=== PATIENT | male | born 1965 | race Caucasian/White ===

== ENCOUNTER 2024-10-27 16:50 | Inpatient (IN) | payer BC, SELFPAY ==
[2024-10-27] VITALS (8 sets, daily range): BP systolic 153–209; BP diastolic 89–126; BMI 37.7; BMI 39.9; BMI 37.6
[2024-10-27 12:13] LABS: Glucose - Point of Care > 600 mg/dl (70-99)
--- NOTE | 2024-10-27 12:42 | ED.GENMED ---
History of Present Illness
General
Chief Complaint: Weakness
Source: patient
Exam Limitations: none
Time Seen by Provider: 10/27/24 12:32
History of Present Illness
History of Present Illness:
59yoM with a history of hypertension and hyperlipidemia presenting for evaluation of generalized weakness. Patient has been severely weak over the past 1 week to the point where he is unable to stand unassisted. He has been having significant
muscle cramps in his lower legs the past few days. He is extremely thirsty and urinating every 30 minutes. He started to experience blurred vision last month and was seen by an eye doctor. The eye doctor asked him if he had a history of diabetes.
Patient has not had outpatient blood work recently. He denies any known history of diabetes.
Past History
Past History
ED Past Medical History: HTN, Hypercholesterolemia and Other (Wellington's disease, Hodgkin's disease in remission since 2002)
ED Past Surgical History: Other (Lymph node removal 1996)
Social History
Tobacco: Former smoker
Alcohol: Occasional
Employment: Employed
Family History
Family History: Other (Reviewed and noncontributory)
Phy Exam
General Physical Exam
General Presentation: mild distress
General Skin: warm and dry
General Mental: alert
General Hydration: dry mucous membranes
ENT Exam
ENT Exam: normocephalic
Cardiovascular Exam
Cardiovascular Exam: regular rate/rhythm
Pulmonary Exam
Pulmonary Exam: lungs clear, no respiratory distress, no rales, no crackles and no rhonchi
Neurological Exam
Neurological Exam: alert
Mehul Coma Scale
Eye Opening: Spontaneous
Verbal Response: Oriented
Motor Response: Obeys Commands
GCS Total Score: 15
Skin Exam
Skin Exam: normal color and warm/dry
Psychiatric Exam
Psychiatric Exam: normal mood/affect
Course
Orders/Labs/Results
Orders:
Orders
10/27/24 12:40
Cardiac Monitoring- Treatment ONCE
0.9% Sodium Chloride 1000 ml [Nss] 1,000 ml IV BOLUS
10/27/24 12:41
Electrocardiogram (*1) Urgent
Reason for Study: Fatigue / Weakness
EKG- Treatment ONCE
10/27/24 13:21
B-Hydroxybutyrate Urgent
Complete Blood Count/With Diff Urgent
Comprehensive Metabolic Panel Urgent
Hemoglobin A1c [Glycohemoglobin (HgbA1c)] Urgent
Magnesium Urgent
Total CK [Creatine Phosphokinase] Urgent
Troponin I Urgent
Urinalysis Reflex To Culture Urgent
Date Specimen was Collected: 10/27/24
Time Specimen was Collected: 13:08
Urine Microscopic Reflex Cult Urgent
Venous Blood Gas Urgent
%Oxygen/Room Air: room air
10/27/24 14:27
0.9% Sodium Chloride 1000 ml [Nss] 1,000 ml IV BOLUS
Insulin Human Regular [Novolin R] 10 units IV NOW STA
10/27/24 14:28
Bedside Glucose- Treatment Q1H
IV Insert/Care/Rem.- Treatment PRN
10/27/24 Dinner
2000 calorie (17 carb) Diabetic
At Your Request: Full Participation
Does patient need a safe tray?: No
10/27/24 15:16
Reg Insulin 100 Units/100 ml [Novolin R Insulin Infusion] 100 units in 100 ml IV NOW
10/27/24 16:00
KCl 20 Meq/0.9%Sodchl 1000 ml [NSS with KCL 20 MEQ] 20 meq in 1,000 ml IV 250 mls/hr
10/27/24 16:04
Insulin Human Regular [Novolin R] 10 units IV NOW STA
10/27/24 16:11
Admit/Transfer Patient As Directed
Co-Sign Provider:
Level of Care: Inpatient admission
Assign to:: Telemetry
Physician / Group: Lisa
Diagnosis: DM with hyperglycemia
Reason for Telemetry: Syncope
Date to Stop Telemetry: 10/29/24
Time to Stop Telemetry: 11:00
Reason for Hospitalization: Above
Expected length of stay greater than two midnights?: Yes
ELOS- Estimated Length of Stay in days: 2
I certify the patient meets the requirements for IP care: Yes
PRN Pain Medication Management As Directed
May give lesser potent ordered pain med per pt: Yes
preference::
Protocol:: Medication orders for pain may be administered in a
manner that supports deferring to patient preference
when the pt is:
- Requesting an ordered lesser potent pain medication.
Least to most potent pain medications are defined
as: acetaminophen < NSAID < tramadol < opioids
(morphine, oxycodone, hydromorphone).
- Requesting a lesser dose of the same medication IF
ORDERED.
- Requesting a less intrusive route of administration
if both routes are prescribed by the provider (PO <
IV).
10/27/24 16:14
Code Status As Directed
Resuscitation Status: Full Code
10/27/24 16:43
Basic Metabolic Panel Q2H
TSH Routine
Comment: ADD ON
10/27/24 18:14
0.9% Sodium Chloride 1000 ml [Nss] 1,000 ml IV 125 mls/hr
Amlodipine [Norvasc] 10 mg PO DAILY
Cyclobenzaprine HCl [Flexeril] 10 mg PO HSPRN PRN
Dextrose 50%-Water [Dextrose 50% Syringe] 12.5 grams IV [id number] PRN
Enoxaparin Sodium [Lovenox] 40 mg SC QPM
Glucagon [GlucaGen] 1 mg IM PRN PRN
Insulin Aspart High Resistance [Novolog Flexpen-High Resistance] See Protocol SC AC
Insulin Aspart Pen [Novolog Flexpen] 6 units SC DAILY@1630
10/27/24 18:14
Add On- LAB Routine
Tests Added?: tsh
Bedside Glucose Monitoring As Directed
Frequency: AC&HS
Additional Instructions:: Change to q6h if pt on TPN, tube feeding or not eating
DX Deep Vein Thrombosis Video Routine
10/27/24 22:00
Insulin Glargine Lantus [Lantus] 20 units Subcutaneous Insulin Syringe [Syringe-Insulin] 0 unit SC HS
10/28/24 06:00
BMP [Basic Metabolic Panel] IN AM
CBC/With Diff [Complete Blood Count/With Diff] IN AM
Lipid Profile [Cardiovascular Evaluation] IN AM
10/28/24 07:30
Insulin Aspart Pen [Novolog Flexpen] 6 units SC DAILY@0730
10/28/24 08:00
Atorvastatin [Lipitor] 10 mg PO DAILY
Cholecalciferol (Vitamin D3) [VITAMIN D3 (cholecalciferol)] 50 mcg PO DAILY
Vitamin B Complex with C [B COMPLEX w/VITAMIN C] 1 caplet PO DAILY
10/28/24 11:30
Insulin Aspart Pen [Novolog Flexpen] 6 units SC DAILY@1130
10/29/24 11:00
DC Protocol for Telemetry ONCE
Abnormal Lab Results
10/27/24 10/27/24 10/27/24
12:11 13:21 13:35
MPV 11.1 H fL
(7.4-10.4)
Absolute Neuts (auto) 7.5 H 10^3/uL
(1.4-6.5)
Absolute Monos (auto) 0.7 H 10^3/uL
(0.1-0.6)
Lymphocytes % 16.9 L %
(20.5-51.1)
VBG pO2 90 H mmHg
(30-50)
Sodium 122 L mmol/L
(135-145)
Chloride 90 L mmol/L
(98-107)
BUN 25 H mg/dl
(9-20)
Glucose 978 H* mg/dl
(70-99)
Hemoglobin A1c 14.8 H %
(4.0-5.6)
Alkaline Phosphatase 283 H U/L
(38-126)
Creatine Kinase 211 H U/L
(55-170)
Total Protein 5.5 L g/dl
(6.3-8.2)
Albumin 3.2 L g/dl
(3.5-5.0)
Urine Glucose 4+ A
(Negative)
Urine Albumin (Reflex) 2+ A
(Neg - Trace)
B-Hydroxybutyrate 0.68 H mmol/L
(0.02-0.27)
POC Glucose > 600 H* mg/dl > 600 H* mg/dl
(70-99) (70-99)
10/27/24 10/27/24
16:03 16:43
MPV
Absolute Neuts (auto)
Absolute Monos (auto)
Lymphocytes %
VBG pO2
Sodium 134 L D mmol/L
(135-145)
Chloride
BUN 22 H mg/dl
(920)
Glucose 502 H* mg/dl
(70-99)
Hemoglobin A1c
Alkaline Phosphatase
Creatine Kinase
Total Protein
Albumin
Urine Glucose
Urine Albumin (Reflex)
B-Hydroxybutyrate
POC Glucose > 600 H* mg/dl
(70-99)
10/27/24 13:21
10/27/24 16:43
Vital Signs
Initial and Last Documented VS:
Initial Vital Signs
Temp Pulse Resp BP Pulse Ox
97.7 F 89 16 209/120 100
10/27/24 12:08 10/27/24 12:08 10/27/24 12:08 10/27/24 12:08 10/27/24 12:08
Last Documented Vital Signs
Temp Pulse Resp BP Pulse Ox
98.7 F 85 17 169/110 98
10/27/24 19:28 10/27/24 19:28 10/27/24 19:28 10/27/24 19:28 10/27/24 19:28
MDM/Problems Addressed
Differential Diagnosis Includes:
59yoM here with weakness, muscle cramps, polyuria, and polydipsia x 1 week. He is hypertensive on arrival. Mucous membranes are dry. Fingerstick glucose >600. No prior hx of diabetes. Differential diagnosis includes but is not limited to: new onset
diabetes, DKA, HHS, dehydration
Initial ED plan: Check CBC, CMP, beta hydroxybutyrate, VBG, UA, and troponin/EKG. IV fluid bolus.
*EKG
Interpreted by ED Provider?: Yes
EKG Intrepretation Date: 10/27/24
Heart Rate: 82
Rate: normal
Rhythm: sinus
[place]: normal axis
Interval: normal interval
QRS Pattern: normal QRS
Ischemia: no ischemia
*Critical Care Note
Total Time (30-74mins, 75-104mins- exclusive of procedures): Not Applicable
Update Note
Update Note:
Glucose 978. Sodium 122 which corrects to 136 for glucose. Bicarb and venous pH are normal. Urine ketones negative. Additional fluid bolus, 10 units IV insulin, and insulin infusion ordered. Patient admitted for further management.
ED Attending Note
-
Portions of this chart may have been created with voice recognition software.� Occasional wrong word or��sound alike� substitutions may have occurred due to the inherent limitations of voice recognition software.
Discharge Plan
Departure
Patient Disposition: Admit
Date of Disposition: 10/27/24
Time of Disposition: 14:42
Presentation/result/management discussed w/ accepting MD/DO: Hospitalist
Discharge Problem:
Diabetes mellitus, new onset
Interventions
Interventions:
*Risk Screen - Suicide Last Done: 10/27/24 12:08
*General Assessment Last Done: 10/27/24 13:40
*Neglect/Abuse Screening Last Done: 10/27/24 12:08
*ED- Fall Risk Assessment Last Done: 10/27/24 13:40
*ED COVID-19 Vaccine History Last Done: 10/27/24 18:23
*Nursing Disposition Last Done: 10/27/24 18:23
ED- Cardiac Assessment Last Done: 10/27/24 13:40
ED- Neurological Assessment Last Done: 10/27/24 13:40
ED- Pulmonary Assessment Last Done: 10/27/24 13:40
Discharge Date and Time
Discharge Date/Time: 10/27/24 18:24
[2024-10-27] MEDS: NSS 1000 IV ×3 (13:21→19:46)
[2024-10-27 13:31] LABS: Venous Blood Gas HCO3 22.7 mmol/L (22-27); Venous Blood Gas O2 Sat % 98.5 %; Venous Blood Gas pCO2 42 mmHg (35-48); Venous Blood Gas pH 7.34 (7.32-7.43); Venous Blood Gas pO2 90 mmHg (30-50)
[2024-10-27 13:36] LABS: Glucose - Point of Care > 600 mg/dl (70-99)
[2024-10-27 13:53] LABS: ALT (SGPT) 32 U/L (0-50); AST (SGOT) 22 U/L (17-59); Albumin 3.2 g/dl (3.5-5.0); Alkaline Phosphatase 283 U/L (38-126); B-Hydroxybutyrate 0.68 mmol/L (0.02-0.27); Blood Urea Nitrogen 25 mg/dl (9-20); Calcium 9.2 mg/dl (8.4-10.2); Carbon Dioxide 24 mmol/L (22-30); Chloride 90 mmol/L (98-107); Creatine Phosphokinase 211 U/L (55-170); Estimated Creatinine Clearance 122 ml/min; Magnesium 1.9 mg/dl (1.6-2.3); Sodium 122 mmol/L (135-145); Total Bilirubin 0.6 mg/dl (0.2-1.3); Total Protein 5.5 g/dl (6.3-8.2); eGFR > 60.00
[2024-10-27 14:04] LABS: Troponin I 0.016 ng/ml
[2024-10-27 14:05] LABS: Urine Albumin 2+ (Neg - Trace); Urine Bilirubin Negative (Negative); Urine Character Clear (Clear); Urine Color Yellow; Urine Glucose 4+ (Negative); Urine Ketone Negative (Negative); Urine Leukocyte Negative (Negative); Urine Nitrite Negative (Negative); Urine Occult Blood Negative (Negative); Urine Specific Gravity 1.015 (<1.030); Urine Urobilinogen Negative (Neg - 1+)
[2024-10-27 14:21] LABS: Urine Red Blood Cell None Seen /HPF (0-2); Urine Squamous Cell 0-2 /LPF (Few); Urine White Cell 0-2 /HPF (0-5)
[2024-10-27 14:25] LABS: Glucose 978 mg/dl (70-99)
[2024-10-27 14:39] LABS: % Basophils 0.3 % (0-2); % Eosinophils 1.2 % (0-6); % Immature Granulocytes 0.4 % (0-0.5); % Lymphocytes 16.9 % (20.5-51.1); % Monocytes 6.8 % (1.7-9.3); % Neutrophils 74.4 % (42.2-75.2); Absolute Eosinophils 0.1 10^3/uL (0-0.7); Absolute Lymphocytes 1.7 10^3/uL (1.2-3.4); Absolute Monocytes 0.7 10^3/uL (0.1-0.6); Absolute Neutrophils 7.5 10^3/uL (1.4-6.5); Hematocrit 40.4 % (39.0-52.0); Hemoglobin 14.5 g/dL (13.0-18.0); Mean Corp Hgb Conc. 35.9 g/dL (33.0-37.0); Mean Corpuscular Hgb 29.6 pg (27.0-31.0); Mean Corpuscular Volume 82.4 fL (80.0-94.0); Mean Platelet Volume 11.1 fL (7.4-10.4); Nucleated Red Blood Cells % 0 % (-); Platelet Count 315 10^3/uL (130-400); Red Cell Dist. Width 12.5 % (11.5-14.5); White Blood Cell Count 10.1 10^3/uL (4.8-10.8)
[2024-10-27 14:47] LABS: Glycohemoglobin (HgbA1c) 14.8 % (4.0-5.6)
[2024-10-27] MEDS: NOVOLIN R 10 UNITS IV ×2 (15:16→16:33)
[2024-10-27] MEDS: NOVOLIN R INSULIN INFUSION 100 IV (15:47)
[2024-10-27 16:04] LABS: Glucose - Point of Care > 600 mg/dl (70-99)
--- NOTE | 2024-10-27 16:26 | HPS.HSE ---
Family Physician
-
Family Physician: Jaime Fofana
Chief Complaint
-
Generalized fatigue, muscle cramps, blurry vision.
History of Present Illness
Patient is a 59 years old male with history of hypertension, dyslipidemia, chronic back pain/spinal stenosis, obesity with BMI of 39 who presents to [facility] with complaints of generalized fatigue, thirst, frequent urinations, muscle
cramps and blurry vision. He denies any fever or chills. He denies any chest pain or respiratory symptoms. He denies any syncope or other complaints suggestive of altered mental status. He reports very recent steroid administration for
exacerbation/lower back injury.
With workup in the emergency room patient was found to have severe hyperglycemia with blood glucose of 978. Hemoglobin A1c 14.8. Patient has no prior diagnosis of diabetes.
Patient had been initiated on insulin drip and IV fluids with improvement of muscle cramps.
Medical History
Past Medical History
Past Medical History: Reports HTN and Hypercholesterolemia
Past Surgical History: Reports None
Social History
Tobacco: Former Smoker
Alcohol: Former
Drug: None
Living: With Family
Employment: Employed
Family History
Family History: Not pertinent
Allergies / Home Medications
Allergies reflects when Allergies were last updated in [facility].
Home Medications with original date entered in [facility]
Allergy/Medication List:
Allergies
Allergy/AdvReac Type Severity Reaction Status Date / Time
No Known Allergies Allergy Verified 10/27/24 12:11
Home Medications
amlodipine 10 mg tablet 10 mg PO DAILY Blood pressure 10/07/22
atorvastatin 10 mg tablet 10 mg PO DAILY High cholesterol 10/07/22
cholecalciferol (vitamin D3) 50 mcg (2,000 unit) tablet 2,000 unit PO DAILY #0 tabs 10/09/22
cyclobenzaprine 10 mg tablet 10 mg PO HSPRN PRN muscle spams 10/27/24
ibuprofen 800 mg tablet 800 mg PO DAILY 10/27/24
ibuprofen 800 mg tablet 800 mg PO DAILYPRN PRN moderate pains 10/27/24
vitamin B complex 1 tab PO DAILY 10/27/24
Review of Systems
-
A 12 point ROS was completed and negative except as noted: Yes
Physical Exam
Vital Signs
Vital Signs
Temp Pulse Resp BP Pulse Ox
97.7 F 84 20 153/103 99
10/27/24 12:08 10/27/24 14:15 10/27/24 14:15 10/27/24 14:00 10/27/24 14:15
Physical Exam
General: Well Developed, Well Nourished and No Apparent Distress
HEENT: NormoCephalic, Moist mucous membranes and Atraumatic
Respiratory: Clear
Cardiac: S1/S2 and Regular Rhythm; No Murmur or Rub
GI: Soft, Non Tender, Non Distended and Normal Bowel Sounds; No Organomegaly
Rectal: Deferred by Provider
Musculoskeletal: No Clubbing, No Cyanosis and No Edema
Skin: No Rash
Neuro: Awake, Alert, Oriented, AO x 3 and Nonfocal/grossly intact
Laboratory Results
-
10/27/24 13:21
Laboratory Results
Total Bilirubin 0.6 mg/dl (0.2-1.3) 10/27/24 13:21
AST 22 U/L (17-59) 10/27/24 13:21
ALT 32 U/L (0-50) 10/27/24 13:21
Alkaline Phosphatase 283 U/L (38-126) H 10/27/24 13:21
Troponin I 0.016 ng/ml 10/27/24 13:21
Impression/Plan
-
IMPRESSION:
Newly diagnosed diabetes with severe hyperglycemia
Pseudohyponatremia, corrected blood glucose 136
Dehydration with hypokalemia contraction alkalosis
Mild beta hydroxybutyrate elevation with no clinical evidence of DKA.
Mild nontraumatic rhabdomyolysis
Other conditions:
Essential hypertension
Dyslipidemia
Chronic back pain/spinal stenosis.
Obesity with BMI of 39.
Former smoker.
History of alcohol use disorder
PLAN:
Newly diagnosed diabetes with severe hyperglycemia
Preserved mental status not meeting criteria for HHNK.
Noted with mild bilateral hydroxybutyrate elevation, and mucous disorder including conduction alkalosis and mild gap acidosis, although not quite meet criteria for DKA.
Hemoglobin A1c 14.5
Continue aggressive hydration with isotonic fluids.
Okay to advance diet.
Initiate basal bolus protocol with serial Accu-Cheks.
Initiate subcutaneous insulin regimen with Lantus 20 units at bedtime and NovoLog 6 AC
Adjust dosing for another 24 to 48 hours.
Diabetic nurse practitioner consultation in AM.
Check TSH and lipid profile.
Mild rhabdomyolysis, nontraumatic.
Follow CPK with hydration.
Essential hypertension.
EKG with normal sinus rhythm.
No prior history of CAD.
Lipid profile pending.
Monitor BP on amlodipine.
Chronic back pain/spinal stenosis
Hold ibuprofen acutely.
History of alcohol use disorder, patient claims to be sober recently.
Full code
DVT prophylaxis Lovenox
[2024-10-27 17:05] LABS: Blood Urea Nitrogen 22 mg/dl (9-20); Calcium 9.4 mg/dl (8.4-10.2); Carbon Dioxide 25 mmol/L (22-30); Chloride 101 mmol/L (98-107); Estimated Creatinine Clearance > 125 ml/min; Glucose 502 mg/dl (70-99); Potassium 3.9 mmol/L (3.5-5.1); Sodium 134 mmol/L (135-145); eGFR > 60.00
[2024-10-27] MEDS: NSS with KCL 20 MEQ 1000 IV (17:07)
[2024-10-27] MEDS: LOVENOX 40 MG SC (18:31)
[2024-10-27] MEDS: NORVASC 10 MG PO (18:32)
[2024-10-27 18:33] LABS: Glucose - Point of Care 377 mg/dl (70-99)
[2024-10-27 19:20] LABS: TSH 2.31 uIU/ml (0.47-4.68)
[2024-10-27] MEDS: NOVOLOG FLEXPEN-HIGH RESISTANCE 12 UNITS SC (19:44)
[2024-10-27] MEDS: NOVOLOG FLEXPEN 6 UNITS SC (19:46)
[2024-10-27] MEDS: FLEXERIL 10 MG PO (20:07)
[2024-10-27 21:21] LABS: Glucose - Point of Care 354 mg/dl (70-99)
[2024-10-27] MEDS: LANTUS 0.2 UNITS SC (21:35)
--- NOTE | 2024-10-27 22:22 | PTCARENOTE ---
Patient received in room from, SBAR received from previous RN. Patient AAOx3, drowsy. Last AccuCheck done upon arrival to floor was 377. Ordered standing insulin and sliding scale given to patient as ordered. Patient hypertensive, Verena Maher,
ADOLFO made aware of BP of 169/110. Repeat BP 167/100. No new orders received at this time. 2200 Accu check 354. 20U of Lantus given. ADOLFO Lema made aware of 354 glucose. No additional orders for NovoLog given. Will recheck Accu check at
0300. Call jauregui within reach, will continue to monitor.
[2024-10-28] MEDS: NSS 1000 IV (02:21)
--- NOTE | 2024-10-28 02:25 | PTCARENOTE ---
Patients' Accu check 360. Patient also c/o feeling 'heaviness' around his B/L ankle. Patient with a new +1 edema around ankles. Per MAR received 3L in ED. Patient currently has IVF at 125ml/hr. No hx of CHF. ADOLFO Lema notified of above.
Order received to give 10U NovoLog now and recheck accu check in 2 hours. Order received to decrease IVF to 100ml/hr. Care ongoing, will continue to monitor.
[2024-10-28 02:28] LABS: Glucose - Point of Care 360 mg/dl (70-99)
[2024-10-28] MEDS: NOVOLOG FLEXPEN 10 UNITS SC ×2 (02:47→17:22)
[2024-10-28 03:18] VITALS: BP 158/88
[2024-10-28 04:46] LABS: Glucose - Point of Care 347 mg/dl (70-99)
--- NOTE | 2024-10-28 05:13 | PTCARENOTE ---
Repeat Accu Check 347 s/p 10 U NovoLog. ADOLFO Lema made aware. No new orders received at this time. Will continue to monitor.
[2024-10-28 07:25] VITALS: BP 148/86
[2024-10-28 07:36] LABS: Glucose - Point of Care 187 mg/dl (70-99)
[2024-10-28] MEDS: B COMPLEX w/VITAMIN C 1 CAPLET PO (08:50)
[2024-10-28] MEDS: LIPITOR 10 MG PO (08:51)
[2024-10-28] MEDS: VITAMIN D3 (cholecalciferol) 50 MCG PO (08:51)
[2024-10-28] MEDS: NORVASC 10 MG PO (08:51)
[2024-10-28] MEDS: NOVOLOG FLEXPEN 6 UNITS SC ×2 (08:52→14:01)
[2024-10-28] MEDS: NOVOLOG FLEXPEN-HIGH RESISTANCE 2 UNITS SC (08:52)
[2024-10-28 09:21] LABS: % Basophils 0.2 % (0-2); % Eosinophils 0.8 % (0-6); % Immature Granulocytes 0.3 % (0-0.5); % Lymphocytes 15.7 % (20.5-51.1); % Monocytes 7.8 % (1.7-9.3); % Neutrophils 75.2 % (42.2-75.2); Absolute Eosinophils 0.1 10^3/uL (0-0.7); Absolute Lymphocytes 2.1 10^3/uL (1.2-3.4); Hematocrit 39.6 % (39.0-52.0); Mean Corp Hgb Conc. 35.4 g/dL (33.0-37.0); Mean Corpuscular Hgb 29.4 pg (27.0-31.0); Mean Platelet Volume 10.7 fL (7.4-10.4); Nucleated Red Blood Cells % 0 % (-); Platelet Count 369 10^3/uL (130-400); Red Blood Cell Count 4.77 10^6/uL (4.70-6.10); Red Cell Dist. Width 12.7 % (11.5-14.5); White Blood Cell Count 13.4 10^3/uL (4.8-10.8)
[2024-10-28 09:52] LABS: Blood Urea Nitrogen 16 mg/dl (9-20); Calcium 9.2 mg/dl (8.4-10.2); Carbon Dioxide 22 mmol/L (22-30); Chloride 106 mmol/L (98-107); Estimated Creatinine Clearance 108 ml/min; Glucose 206 mg/dl (70-99); HDL Cholesterol 36 mg/dl; LDL Cholesterol, Calculated 44 mg/dl; Potassium 4.1 mmol/L (3.5-5.1); Sodium 135 mmol/L (135-145); Total Cholesterol 126 mg/dl (50-199); Triglyceride 231 mg/dl (10-149); Very Low Density Lipoprotein 46 mg/dl (0-30); eGFR > 60.00
[2024-10-28 10:59] VITALS: BP 148/84
[2024-10-28 11:58] LABS: Glucose - Point of Care 362 mg/dl (70-99)
[2024-10-28] MEDS: TYLENOL 650 MG PO ×3 (12:13→22:35)
--- NOTE | 2024-10-28 12:17 | CM ---
Met with patient to obtain information for assessment. Patient stated that he lives in a two story, single home with no steps to enter. He is independent with his ADLs, personal care, dressing and bathing. 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
clean and do laundry. Patient drives and can get to his appointments and do his own shopping. Patient has no DME. He has never been to a SNF.
Patient has a prescription plan and uses, [facility] in [place] for all of his medications.
His PCP is Jaime Fofana.
Plan: Case management will continue to follow and assist with discharge planning. Patient should be able to return home when medically stable.
--- NOTE | 2024-10-28 13:29 | CARDSERVLU ---
Echocardiogram with Lumason completed after protocol screening completed. Allergies verified.
Patent IV site: ___Left AC__
IV site flushed with 0.9% NaCl pre and post administration.
Diluted bolus method utilized to enhance visualization of ventricular scott.
Total volume given: __2.0__ mL
Patient tolerated all procedures well without complications.
[2024-10-28] MEDS: NOVOLOG FLEXPEN-HIGH RESISTANCE 12 UNITS SC (14:00)
--- NOTE | 2024-10-28 14:35 | PTCARENOTE ---
Addendum entered by Katherin Nolen RN 10/28/24 15:01:
Requested RN place RD consult per patient request, requested diabetic testing supplies to be ordered from inpatient MD.
Original Note:
10/28/2024 DIABETES EDUCATION
I met with Mr. Acosta to review diabetes management, is newly diagnosed with diabetes.
I educated on physiology of T1D and T2D, managing with medications, monitoring BG, nutrition, activity, sleep and managing stress.
I educated and reviewed using Contour Next glucometer, member acknowledged understanding with a self demonstration of checking BS.
I educated and demonstrated on insulin injection technique, timing, and storage. Discussed short and long acting insulin; onset/peak/duration, and encouraged Mr. Acosta to administer his own injections with RN supervision while admitted. I
mentioned ot Mr. Acosta that he is currently prescribed short acting insulin, which may change while IP or at discharge.
Discussed normal target glucose ranges, I reinforced signs of hyperglycemia, hypoglycemia; BS parameters and recommended HbA1c goals, written material provided. Encouraged patient to follow up with his PCP for post d/c appointment and to
monitor medication and blood glucose levels. Information provided on the outpatient DSME program. Patient verbalized understanding.
[2024-10-28 14:57] VITALS: BP 145/91
[2024-10-28 15:10] LABS: NT-proBNP 37.9 pg/ml; Troponin I 0.018 ng/ml
--- NOTE | 2024-10-28 15:50 | PN.DE.MGMTRT ---
Insulin Management
- -
10/28/2024 Diabetes Management Consult
Patient admitted 10/27 with weakness, found to have new onset diabetes, glucose 978. PMH HTN, HLD, Hodgkins in remission since 2002. A1C on admission 14.8%
Patient is awake alert and oriented able to discuss new diabetes. Admits to recent thirst, freq. urination in the past week. Discussed the need for insulin, patient understands.
Patient received 6 units lantus @ hs 10/27, 12 MN glucose 360, given 10 units novolog, fasting glucose 187. Received 8 units novolog, pre lunch glucose 362.
Dr. Gonzalez has increased HS lantus to 20 units. Will increase AC novolog to 10 units AC with high corrective insulin.
Diabetes Nurse Educator has instructed patient on insulin administration and glucose monitor.
RX for test strips and lancets in ambulatory orders.
Will follow
Discussed with nurse.
Diabetes History
- -
Type of Diabetes: 2 requiring insulin
Pre-Admission Diabetes Regimen
10/27/24 10/27/24 10/27/24
14:30 16:43 18:30
Creatinine Cancelled 0.8 Cancelled
10/28/24
08:58
Creatinine 0.9
Lab Results
Hemoglobin A1c 14.8 % (4.0-5.6) H 10/27/24 13:21
Insulin Pump Settings
IP Diabetes Regimen
10/27/24 10/27/24 10/27/24
14:30 16:03 16:43
Glucose Cancelled 502 H*
POC Glucose > 600 H*
10/27/24 10/27/24 10/27/24
18:30 18:33 21:19
Glucose Cancelled
POC Glucose 377 H 354 H
10/28/24 10/28/24 10/28/24
02:25 04:44 07:35
Glucose
POC Glucose 360 H 347 H 187 H
10/28/24 10/28/24
08:58 11:57
Glucose 206 H
POC Glucose 362 H
Patient Education
--- NOTE | 2024-10-28 15:54 | W.PN.HOSP.TC ---
Today's Communication/Plan
-
Adjust insulin dose.
Wean off IV fluids.
Insulin teaching
Assessment / Plan
Assessment / Plan
IMPRESSION:
Newly diagnosed diabetes with severe hyperglycemia
Pseudohyponatremia, corrected blood glucose 136
Dehydration with hypokalemia contraction alkalosis
Mild beta hydroxybutyrate elevation with no clinical evidence of DKA.
Mild nontraumatic rhabdomyolysis
Other conditions:
Essential hypertension
Dyslipidemia
Chronic back pain/spinal stenosis.
Obesity with BMI of 39.
Former smoker.
History of alcohol use disorder
PLAN:
Newly diagnosed diabetes with severe hyperglycemia
Preserved mental status not meeting criteria for HHNK.
Noted with mild bilateral hydroxybutyrate elevation, and mucous disorder including conduction alkalosis and mild gap acidosis, although not quite meet criteria for DKA.
Hemoglobin A1c 14.5
Continue aggressive hydration with isotonic fluids.
Okay to advance diet.
Initiate basal bolus protocol with serial Accu-Cheks.
Initiated on insulin Lantus/AC NovoLog. Plan is to adjust the dose of the next 24 to 48 hours. Continue basal bolus protocol with serial Accu-Cheks.
Insulin teaching
TSH within normal limits
Mild rhabdomyolysis, nontraumatic.
Improved with hydration
Essential hypertension.
EKG with normal sinus rhythm.
No prior history of CAD.
Echocardiogram with preserved biventricular function
Continue amlodipine
Continue statin
Chronic back pain/spinal stenosis
Hold ibuprofen acutely.
History of alcohol use disorder, patient claims to be sober recently.
Full code
DVT prophylaxis Lovenox
Anticipated Discharge: 24 - 48 hours
Subjective/Interval History
-
Date of Service: October 28, 2024
Objective Data
-
Labs:
Laboratory Results
10/28/24
08:58
WBC 13.4 H
Hgb 14.0
Hct 39.6
Plt Count 369
Sodium 135
Potassium 4.1
Chloride 106
Carbon Dioxide 22
BUN 16
Creatinine 0.9
Glucose 206 H
Calcium 9.2
Vital Signs:
Vital Signs
Temp Pulse Resp BP Pulse Ox
99.5 F 97 16 145/91 97
10/28/24 14:57 10/28/24 14:57 10/28/24 14:57 10/28/24 14:57 10/28/24 14:57
I&O
10/27/24 10/28/24 10/29/24
06:59 06:59 06:59
Intake Total 480 / 480
Output Total 2150 / 2150
Balance -1670 / -1670
Physical Exam
-
General: Well Developed and No Apparent Distress
HEENT: Normocephalic, Atraumatic and Moist Mucous Membranes
Respiratory: Clear to Auscultation
Cardiac: Regular Rhythm and S1/S2; Negative Murmur, Rub or Gallop
GI: Soft, Nontender, Nondistended and Normal Bowel Sounds; Negative Organomegaly
Rectal: Deferred by Provider
Musculoskeletal: No Clubbing, No Cyanosis and No Edema
Skin: Negative Rash
Neuro: Nonfocal/Grossly Intact
[2024-10-28 16:49] LABS: Glucose - Point of Care 295 mg/dl (70-99)
[2024-10-28] MEDS: LOVENOX 40 MG SC (17:20)
[2024-10-28] MEDS: NOVOLOG FLEXPEN-HIGH RESISTANCE 7 UNITS SC (17:21)
[2024-10-28 19:38] VITALS: BP 164/93
[2024-10-28 21:21] LABS: Glucose - Point of Care 296 mg/dl (70-99)
[2024-10-28] MEDS: LANTUS 0.2 UNITS SC (21:24)
[2024-10-28 23:18] VITALS: BP 158/80
[2024-10-29] VITALS (7 sets, daily range): BP systolic 143–177; BP diastolic 80–95; PULSE 98
[2024-10-29 07:27] LABS: % Basophils 0.4 % (0-2); % Eosinophils 0.6 % (0-6); % Immature Granulocytes 0.5 % (0-0.5); % Lymphocytes 13.5 % (20.5-51.1); % Monocytes 8.9 % (1.7-9.3); % Neutrophils 76.1 % (42.2-75.2); Absolute Basophils 0.1 10^3/uL (0-0.2); Absolute Eosinophils 0.1 10^3/uL (0-0.7); Absolute Immature Granulocytes 0.1 10^3/uL (0-0.05); Absolute Lymphocytes 1.8 10^3/uL (1.2-3.4); Absolute Monocytes 1.2 10^3/uL (0.1-0.6); Absolute Neutrophils 10.2 10^3/uL (1.4-6.5); Hematocrit 41.4 % (39.0-52.0); Hemoglobin 14.3 g/dL (13.0-18.0); Mean Corp Hgb Conc. 34.5 g/dL (33.0-37.0); Mean Corpuscular Hgb 29.2 pg (27.0-31.0); Mean Corpuscular Volume 84.5 fL (80.0-94.0); Mean Platelet Volume 10.8 fL (7.4-10.4); Nucleated Red Blood Cells % 0 % (-); Platelet Count 331 10^3/uL (130-400); White Blood Cell Count 13.4 10^3/uL (4.8-10.8)
[2024-10-29 07:41] LABS: Blood Urea Nitrogen 19 mg/dl (9-20); Calcium 9.5 mg/dl (8.4-10.2); Carbon Dioxide 22 mmol/L (22-30); Chloride 102 mmol/L (98-107); Estimated Creatinine Clearance 108 ml/min; Glucose 257 mg/dl (70-99); Potassium 4.2 mmol/L (3.5-5.1); Sodium 134 mmol/L (135-145); eGFR > 60.00
[2024-10-29 08:02] LABS: Glucose - Point of Care 317 mg/dl (70-99)
[2024-10-29] MEDS: NOVOLOG FLEXPEN-HIGH RESISTANCE 10 UNITS SC ×3 (08:41→17:07)
[2024-10-29] MEDS: NOVOLOG FLEXPEN 10 UNITS SC (08:41)
[2024-10-29] MEDS: NORVASC 10 MG PO (08:42)
[2024-10-29] MEDS: VITAMIN D3 (cholecalciferol) 50 MCG PO (08:42)
[2024-10-29] MEDS: LIPITOR 10 MG PO (08:42)
[2024-10-29] MEDS: B COMPLEX w/VITAMIN C 1 CAPLET PO (08:42)
[2024-10-29 11:38] LABS: Glucose - Point of Care 331 mg/dl (70-99)
--- NOTE | 2024-10-29 11:57 | W.PN.HOSP.TC ---
Today's Communication/Plan
-
Increase Lantus/lispro, PT/OT
Assessment / Plan
Assessment / Plan
IMPRESSION:
Patient is 59 years old with history of hypertension, hyperlipidemia, chronic pain and spinal stenosis, obesity who came to the ER with generalized fatigue, muscle cramp, blurry vision found to have new onset diabetes mellitus not in DKA. Hemoglobin
A1c came back elevated at 14.5. Started on Lantus/lispro.
Adjusting insulin based on current blood sugar read and ordered PT consult for generalized fatigue.
Assessment/plan
Newly diagnosed diabetes with severe hyperglycemia
Preserved mental status not meeting criteria for HHNK.
Noted with mild bilateral hydroxybutyrate elevation, and mucous disorder including conduction alkalosis and mild gap acidosis, although not quite meet criteria for DKA.
Hemoglobin A1c 14.5
Continue aggressive hydration with isotonic fluids.
Okay to advance diet.
Initiate basal bolus protocol with serial Accu-Cheks.
Initiated on insulin Lantus/AC NovoLog. Plan is to adjust the dose of the next 24 to 48 hours. Continue basal bolus protocol with serial Accu-Cheks.
Insulin teaching
TSH within normal limits
10/29
Stable blood sugar read elevated
Lantus increased to 30 units.
NovoLog increased to 15 unit before meals
Mild rhabdomyolysis, nontraumatic.
Improved with hydration
Essential hypertension.
EKG with normal sinus rhythm.
No prior history of CAD.
Echocardiogram with preserved biventricular function
Continue amlodipine
Continue statin
Chronic back pain/spinal stenosis
Hold ibuprofen acutely.
PT/OT
History of alcohol use disorder
patient claims to be sober recently.
CODE STATUS: Full code
DVT prophylaxis: Lovenox
Diet: Diabetic diet
Anticipated Discharge: 24 - 48 hours
Subjective/Interval History
-
Date of Service: October 29, 2024
Patient seen and examined at bedside, denies any chest pain or shortness of breath, no abdominal pain, no nausea, no vomiting, no diarrhea or constipation.
Blood sugar still elevated, We will increase his insulin to 15 units, 3 times daily, Lantus to 20 units. Also, the patient was feeling fatigued today. We need to consult PT.
Objective Data
-
Labs:
Laboratory Results
10/29/24
06:25
WBC 13.4 H
Hgb 14.3
Hct 41.4
Plt Count 331
Sodium 134 L
Potassium 4.2
Chloride 102
Carbon Dioxide 22
BUN 19
Creatinine 0.9
Glucose 257 H
Calcium 9.5
Vital Signs:
Vital Signs
Temp Pulse Resp BP Pulse Ox
98.0 F 100 19 147/95 97
10/29/24 11:00 10/29/24 11:00 10/29/24 11:00 10/29/24 11:00 10/29/24 11:00
I&O
10/28/24 10/29/24 10/30/24
06:59 06:59 06:59
Intake Total 480 / 480 970 / 970
Output Total 2150 / 2150 2450 / 2450
Balance -1670 / -1670 -1480 / -1480
Physical Exam
-
General: Well Developed, Well Nourished, No Apparent Distress, Comfortable and Obese
HEENT: Normocephalic, Atraumatic, Moist Mucous Membranes, No Ptosis, PERRLA and Nose Appears Normal
Respiratory: Clear to Auscultation and Non Labored Respirations
Cardiac: Regular Rhythm and S1/S2
Breast: Deferred by me
GI: Soft, Nontender, Nondistended and Normal Bowel Sounds
Genito-urinary: No Costovertebral Tender
Musculoskeletal: No Clubbing, No Cyanosis and No Edema
Skin: Warm
Neuro: Awake, Alert, Oriented, AO x 3 and No Motor Deficits
Psych: Calm
Data Reviewed
-
Diagnostic Radiology: Image personally visualized and interpreted and Report Reviewed by me
CT Scan: Image personally visualized and interpreted and Report Reviewed by me
Ultrasound: Image personally visualized and interpreted and Report Reviewed by me
MRI: Image personally visualized and interpreted and Report Reviewed by me
Medical Tests (Nuc Med, Echo etc): Image personally visualized and interpreted and Report Reviewed by me
Labs: Labs Reviewed by me
Old Records: Reviewed
[2024-10-29] MEDS: NOVOLOG FLEXPEN 15 UNITS SC ×2 (13:17→17:07)
[2024-10-29] MEDS: NEURONTIN 300 MG PO ×2 (15:11→21:22)
[2024-10-29 16:47] LABS: Glucose - Point of Care 343 mg/dl (70-99)
[2024-10-29] MEDS: LOVENOX 40 MG SC (17:07)
[2024-10-29] MEDS: FLEXERIL 10 MG PO (19:40)
[2024-10-29 21:17] LABS: Glucose - Point of Care 304 mg/dl (70-99)
[2024-10-29] MEDS: LANTUS 0.3 UNITS SC (21:22)
[2024-10-29 23:46] LABS: Glucose - Point of Care 262 mg/dl (70-99)
[2024-10-30 07:00] VITALS: BP 172/97
[2024-10-30 07:21] LABS: Hematocrit 38.5 % (39.0-52.0); Hemoglobin 13.3 g/dL (13.0-18.0); Mean Corp Hgb Conc. 34.5 g/dL (33.0-37.0); Mean Corpuscular Hgb 29.2 pg (27.0-31.0); Mean Corpuscular Volume 84.6 fL (80.0-94.0); Mean Platelet Volume 10.8 fL (7.4-10.4); Platelet Count 320 10^3/uL (130-400); Red Blood Cell Count 4.55 10^6/uL (4.70-6.10); Red Cell Dist. Width 12.9 % (11.5-14.5); White Blood Cell Count 16.1 10^3/uL (4.8-10.8)
[2024-10-30 07:53] LABS: Glucose - Point of Care > 600 mg/dl (70-99)
[2024-10-30 07:56] LABS: Blood Urea Nitrogen 21 mg/dl (9-20); Calcium 9.2 mg/dl (8.4-10.2); Carbon Dioxide 19 mmol/L (22-30); Chloride 101 mmol/L (98-107); Estimated Creatinine Clearance 97 ml/min; Glucose 275 mg/dl (70-99); Potassium 4.3 mmol/L (3.5-5.1); Sodium 132 mmol/L (135-145); eGFR > 60.00
--- NOTE | 2024-10-30 08:23 | PTCARENOTE ---
RR Hi on accucheckprior to breakfast. Glucose from BMP drawn approx 1 hr ago noted to be 275. Stat glucose ordered per protocol to confirm blood sugar prior to dosing insulin for breakfast. Venous glucose result 279 - insulin dosed according to
venous blood glucose.
[2024-10-30 08:35] LABS: Glucose 279 mg/dl (70-99)
[2024-10-30] MEDS: NOVOLOG FLEXPEN 15 UNITS SC ×3 (08:38→17:02)
[2024-10-30] MEDS: NOVOLOG FLEXPEN-HIGH RESISTANCE 7 UNITS SC (08:38)
[2024-10-30] MEDS: VITAMIN D3 (cholecalciferol) 50 MCG PO (08:39)
[2024-10-30] MEDS: NORVASC 10 MG PO (08:39)
[2024-10-30] MEDS: NEURONTIN 300 MG PO ×3 (08:39→21:49)
[2024-10-30] MEDS: LIPITOR 10 MG PO (08:39)
[2024-10-30] MEDS: B COMPLEX w/VITAMIN C 1 CAPLET PO (08:39)
[2024-10-30 11:27] LABS: Glucose - Point of Care 533 mg/dl (70-99)
[2024-10-30 11:37] LABS: Glucose - Point of Care 272 mg/dl (70-99)
--- NOTE | 2024-10-30 12:06 | W.PN.HOSP.TC ---
Today's Communication/Plan
-
Blood cultures
Assessment / Plan
Assessment / Plan
IMPRESSION:
Patient is 59 years old with history of hypertension, hyperlipidemia, chronic pain and spinal stenosis, obesity who came to the ER with generalized fatigue, muscle cramp, blurry vision found to have new onset diabetes mellitus not in DKA. Hemoglobin
A1c came back elevated at 14.5. Started on Lantus/lispro.
Adjusting insulin based on current blood sugar read and ordered PT consult for generalized fatigue.
Assessment/plan
Newly diagnosed diabetes with severe hyperglycemia
Preserved mental status not meeting criteria for HHNK.
Noted with mild bilateral hydroxybutyrate elevation, and mucous disorder including conduction alkalosis and mild gap acidosis, although not quite meet criteria for DKA.
Hemoglobin A1c 14.5
Continue aggressive hydration with isotonic fluids.
Okay to advance diet.
Initiate basal bolus protocol with serial Accu-Cheks.
Initiated on insulin Lantus/AC NovoLog. Plan is to adjust the dose of the next 24 to 48 hours. Continue basal bolus protocol with serial Accu-Cheks.
Insulin teaching
TSH within normal limits
10/29
Stable blood sugar read elevated
Lantus increased to 30 units.
NovoLog increased to 15 unit before meals
10/30
Still with elevated blood sugar, will consider to increase Lantus and NovoLog further
Leukocytosis
No sign of localized infection.
Chest x-ray done in admission shows no acute finding.
UA on admission shows no infection.
Will obtain blood culture
Mild rhabdomyolysis, nontraumatic.
Improved with hydration
Essential hypertension.
EKG with normal sinus rhythm.
No prior history of CAD.
Echocardiogram with preserved biventricular function
Continue amlodipine
Continue statin
Chronic back pain/spinal stenosis
Hold ibuprofen acutely.
PT/OT
History of alcohol use disorder
patient claims to be sober recently.
CODE STATUS: Full code
DVT prophylaxis: Lovenox
Diet: Diabetic diet
Total time spent on today's encounter was 55 minutes which included time spent in counseling the patient/family regarding diagnosis and treatment plan as listed above, goals of care, and symptom management. Case was discussed with nursing staff,
specialists, and care coordinators/case management. All labs and imaging personally reviewed by me. Remainder the time spent in detailed review of previous records, lab data, imaging, and other medical provider documentation.
Anticipated Discharge: 24 - 48 hours
Subjective/Interval History
-
Date of Service: October 30, 2024
Overnight patient had issues with elevated blood sugar, and received extra insulin
Blood sugar improved in a.m.
May need to increase Lantus and Premeal coverage
Started on gabapentin yesterday which helped with muscle pain.
Worsening leukocytosis today will obtain blood cultures.
Seen by physical therapy yesterday who recommended rehab.
Objective Data
-
Labs:
Laboratory Results
10/30/24 10/30/24 10/30/24
06:33 08:12 11:54
WBC 16.1 H
Hgb 13.3
Hct 38.5 L
Plt Count 320
Sodium 132 L
Potassium 4.3
Chloride 101
Carbon Dioxide 19 L
BUN 21 H
Creatinine 1.0
Glucose 275 H 279 H Pending
Calcium 9.2
Vital Signs:
Vital Signs
Temp Pulse Resp BP Pulse Ox
98.0 F 98 17 172/97 95
10/30/24 07:00 10/30/24 07:00 10/30/24 07:00 10/30/24 07:00 10/30/24 07:00
I&O
10/29/24 10/30/24 10/31/24
06:59 06:59 06:59
Intake Total 970 / 970 1680 / 1680 480 / 480
Output Total 2450 / 2450 900 / 900 1300 / 1300
Balance -1480 / -1480 780 / 780 -820 / -820
Physical Exam
-
General: Well Developed, Well Nourished, No Apparent Distress, Comfortable and Obese
HEENT: Normocephalic, Atraumatic, Moist Mucous Membranes, No Ptosis, PERRLA and Nose Appears Normal
Respiratory: Clear to Auscultation and Non Labored Respirations
Cardiac: Regular Rhythm and S1/S2
Breast: Deferred by me
GI: Soft, Nontender, Nondistended and Normal Bowel Sounds
Genito-urinary: No Costovertebral Tender
Musculoskeletal: No Clubbing, No Cyanosis and No Edema
Skin: Warm
Neuro: Awake, Alert, Oriented, AO x 3 and No Motor Deficits
Psych: Calm
[2024-10-30 12:18] LABS: Glucose 330 mg/dl (70-99)
--- NOTE | 2024-10-30 12:25 | PTCARENOTE ---
RR Hi again on accucheck prior to lunch. Accucheck recalibrated and then pt rechecked - result 272. Stat venous blood glucose ordered again to confirm accuracy - venous glucose result 330. Dosing from venous glucose result again for lunch time
insulin dose.
[2024-10-30] MEDS: NOVOLOG FLEXPEN-HIGH RESISTANCE 10 UNITS SC ×2 (13:34→17:03)
[2024-10-30 14:59] VITALS: BP 163/92
[2024-10-30 15:32] VITALS: BP 139/91; BP 162/85
[2024-10-30 15:34] VITALS: BP 139/91; BP 162/85; PULSE 100; O2SAT 95
[2024-10-30 16:40] LABS: Glucose - Point of Care 313 mg/dl (70-99)
[2024-10-30] MEDS: LOVENOX 40 MG SC (17:03)
[2024-10-30] MEDS: TYLENOL 650 MG PO (17:37)
[2024-10-30 19:15] LABS: Glucose - Point of Care 314 mg/dl (70-99)
[2024-10-30] MEDS: FLEXERIL 10 MG PO (19:34)
[2024-10-30 21:24] LABS: Glucose - Point of Care > 600 mg/dl (70-99)
[2024-10-30 21:24] LABS: Glucose - Point of Care > 600 mg/dl (70-99)
[2024-10-30 21:25] LABS: Glucose - Point of Care 271 mg/dl (70-99)
[2024-10-30] MEDS: LANTUS 0.3 UNITS SC (21:49)
[2024-10-30 23:04] VITALS: BP 151/96
[2024-10-31 07:10] LABS: Hematocrit 38.3 % (39.0-52.0); Hemoglobin 13.3 g/dL (13.0-18.0); Mean Corp Hgb Conc. 34.7 g/dL (33.0-37.0); Mean Corpuscular Hgb 29.6 pg (27.0-31.0); Mean Corpuscular Volume 85.3 fL (80.0-94.0); Mean Platelet Volume 10.4 fL (7.4-10.4); Platelet Count 329 10^3/uL (130-400); Red Blood Cell Count 4.49 10^6/uL (4.70-6.10); White Blood Cell Count 12.7 10^3/uL (4.8-10.8)
[2024-10-31 07:33] VITALS: BP 153/89
[2024-10-31 07:34] LABS: Blood Urea Nitrogen 21 mg/dl (9-20); Calcium 9.3 mg/dl (8.4-10.2); Carbon Dioxide 22 mmol/L (22-30); Chloride 100 mmol/L (98-107); Estimated Creatinine Clearance 108 ml/min; Glucose 225 mg/dl (70-99); Potassium 4.9 mmol/L (3.5-5.1); Sodium 132 mmol/L (135-145); eGFR > 60.00
[2024-10-31 07:45] LABS: Glucose - Point of Care 229 mg/dl (70-99)
[2024-10-31] MEDS: LIPITOR 10 MG PO (08:00)
[2024-10-31] MEDS: NOVOLOG FLEXPEN 15 UNITS SC (08:19)
[2024-10-31] MEDS: NOVOLOG FLEXPEN-HIGH RESISTANCE 4 UNITS SC (08:20)
[2024-10-31] MEDS: B COMPLEX w/VITAMIN C 1 CAPLET PO (08:21)
[2024-10-31] MEDS: NORVASC 10 MG PO (08:21)
[2024-10-31] MEDS: VITAMIN D3 (cholecalciferol) 50 MCG PO (08:21)
[2024-10-31] MEDS: NEURONTIN 300 MG PO ×3 (08:22→21:32)
[2024-10-31] MEDS: TYLENOL 650 MG PO ×2 (08:23→23:44)
[2024-10-31 09:22] LABS: Glucose - Point of Care 290 mg/dl (70-99)
[2024-10-31 09:26] VITALS: BP 123/79
[2024-10-31 10:26] LABS: Erythrocyte Sed Rate 74 mm/hour (0-20)
--- NOTE | 2024-10-31 10:39 | PN.DE.MGMTRT ---
Insulin Management
- -
10/31/2024: Diabetes Management Follow up
Patient admitted 10/27 with weakness, found to have new onset diabetes, glucose 978.
PMH: HTN, HLD, Hodgkins in remission since 2002. A1C on admission 14.8%, Cr 0.9, eGFR >60. Pt admits to recent thirst, freq. urination in the past week. Discussed the need for insulin, patient understands.
Patient is awake alert and oriented, sitting up in bed, able to discuss new diabetes.
Noted for persistent Hyperglycemia. HS glucose elevated up to >600 POC, No venous draw obtained, pt received 30 units Lantus, FBG 225(V) this AM.
Will increase Lantus to 40 units @ HS. 10/30 Premeal range 272 to 533, requiring 4-10 units of corrective insulin with meals
Will increase AC NovoLog to 20 units with high corrective insulin.
Will cont to follow and make further insulin dose adjustments if necessary. Discussed with nurse.
Diabetes Nurse Educator provided instructions on insulin administration and glucose monitor.
RX for test strips and lancets in ambulatory orders.
Diabetes History
- -
Type of Diabetes: 2 requiring insulin
Pre-Admission Diabetes Regimen
10/31/24
06:39
Creatinine 0.9
Lab Results
Hemoglobin A1c 14.8 % (4.0-5.6) H 10/27/24 13:21
Insulin Pump Settings
IP Diabetes Regimen
10/30/24 10/30/24 10/30/24
11:26 11:36 11:54
Glucose 330 H
POC Glucose 533 H* 272 H
10/30/24 10/30/24 10/30/24
16:36 19:13 21:19
Glucose
POC Glucose 313 H 314 H > 600 H*
10/30/24 10/30/24 10/31/24
21:21 21:22 06:39
Glucose 225 H
POC Glucose > 600 H* 271 H
10/31/24 10/31/24
07:44 09:21
Glucose
POC Glucose 229 H 290 H
Meal type: Dinner
Meal type: Lunch
Meal type: Breakfast
Amount consumed: 100%
Amount consumed: 100%
Amount consumed: 100%
Patient Education
[2024-10-31 10:51] VITALS: BP 125/89
[2024-10-31 11:19] LABS: C-Reactive Protein > 270.00 mg/L (0.0-10.00)
[2024-10-31 11:42] LABS: Glucose - Point of Care 273 mg/dl (70-99)
[2024-10-31 12:22] LABS: Creatine Phosphokinase 56 U/L (55-170)
--- NOTE | 2024-10-31 12:38 | CM ---
patient seen at bedside
PT rec SNF
Options reviewed-Referrals entered in [facility]port
Will need to obtain ins auth
PLAN: SNF, pending bed availability, will need auth
[2024-10-31] MEDS: NOVOLOG FLEXPEN-HIGH RESISTANCE 7 UNITS SC (13:34)
[2024-10-31] MEDS: NOVOLOG FLEXPEN 20 UNITS SC ×2 (13:36→17:56)
--- NOTE | 2024-10-31 13:40 | PTCARENOTE ---
This AM before breakfast, pt noted to be diaphoretic and appearing pale, struggling to keep eyes open. Visually, he did not look well compared to previous days per staff. An EKG, AccuCheck and vitals obtained. All unremarkable. MD notified and
entered new orders for lab work including repeat blood cultures and additional lab add ons. Hours later, patient is not diaphoretic, increased alertness and color had returned. Vitals remain stable, pt also remains afebrile. Plan of care ongoing.
[2024-10-31 14:41] VITALS: BP 164/81
--- NOTE | 2024-10-31 15:06 | W.PN.HOSP.TC ---
Today's Communication/Plan
-
Follow blood cultures
Monitor temperature curve.
Monitor closely off antibiotics.
Adjust insulin dose
Assessment / Plan
Assessment / Plan
IMPRESSION:
Patient is 59 years old with history of hypertension, hyperlipidemia, chronic pain and spinal stenosis, obesity who came to the ER with generalized fatigue, muscle cramp, blurry vision found to have new onset diabetes mellitus not in DKA. Hemoglobin
A1c came back elevated at 14.5. Started on Lantus/lispro.
Adjusting insulin based on current blood sugar read and ordered PT consult for generalized fatigue.
Assessment/plan
Newly diagnosed diabetes with severe hyperglycemia
Preserved mental status not meeting criteria for HHNK.
Noted with mild bilateral hydroxybutyrate elevation, and mucous disorder including conduction alkalosis and mild gap acidosis, although not quite meet criteria for DKA.
Hemoglobin A1c 14.5
Continue aggressive hydration with isotonic fluids.
Okay to advance diet.
Initiate basal bolus protocol with serial Accu-Cheks.
Initiated on insulin Lantus/AC NovoLog.
Insulin teaching
TSH within normal limits
Remains hyperglycemic
Insulin dose adjusted increasing Lantus 40 at bedtime/NovoLog 20 AC. Continue basal bolus protocol.
Fever leukocytosis
No sign of localized infection.
Chest x-ray done in admission shows no acute finding.
UA on admission shows no infection.
Elevated inflammatory markers: CRP/sed rate.
Blood cultures pending.
Complains of right shoulder pain with x-ray showed no acute abnormalities.
Has a chronic low back pain which patient reports no exacerbation at this point
Follow final blood cultures
If persistent fever, leukocytosis, consider additional imaging including MRI of the shoulder and lower back, CT of the chest abdomen and pelvis.
Mild rhabdomyolysis, nontraumatic.
Improved with hydration
Essential hypertension.
EKG with normal sinus rhythm.
No prior history of CAD.
Echocardiogram with preserved biventricular function
Continue amlodipine
Continue statin
Chronic back pain/spinal stenosis
Hold ibuprofen acutely.
PT/OT
History of alcohol use disorder
patient claims to be sober recently.
CODE STATUS: Full code
DVT prophylaxis: Lovenox
Diet: Diabetic diet
Anticipated Discharge: 24 - 48 hours
Subjective/Interval History
-
Date of Service: October 31, 2024
Objective Data
-
Labs:
Laboratory Results
10/31/24
06:39
WBC 12.7 H
Hgb 13.3
Hct 38.3 L
Plt Count 329
Sodium 132 L
Potassium 4.9
Chloride 100
Carbon Dioxide 22
BUN 21 H
Creatinine 0.9
Glucose 225 H
Calcium 9.3
Vital Signs:
Vital Signs
Temp Pulse Resp BP Pulse Ox
99.3 F 102 22 164/81 98
10/31/24 14:41 10/31/24 14:41 10/31/24 14:41 10/31/24 14:41 10/31/24 14:41
I&O
10/30/24 10/31/24 11/01/24
06:59 06:59 06:59
Intake Total 1680 / 1680 2640 / 2640
Output Total 900 / 900 4200 / 4200
Balance 780 / 780 -1560 / -1560
Physical Exam
-
General: Well Developed, Well Nourished, No Apparent Distress, Comfortable and Obese
HEENT: Normocephalic, Atraumatic, Moist Mucous Membranes, No Ptosis, PERRLA and Nose Appears Normal
Respiratory: Clear to Auscultation and Non Labored Respirations
Cardiac: Regular Rhythm and S1/S2
Breast: Deferred by me
GI: Soft, Nontender, Nondistended and Normal Bowel Sounds
Genito-urinary: No Costovertebral Tender
Musculoskeletal: No Clubbing, No Cyanosis and No Edema
Skin: Warm
Neuro: Awake, Alert, Oriented, AO x 3 and No Motor Deficits
Psych: Calm
--- NOTE | 2024-10-31 15:50 | PTCARENOTE ---
10/31/2024 DIABETES EDUCATION
I visited Mr. Acosta, he has been administering his insulin injections for the past few days with no difficulties. Also states he has been assisting with glucose checks with no difficulty. Anticipates going to rehab after discharge, was receptive
to receiving names of local Endocrinologists. Will follow up on 11/01/2024.
[2024-10-31 17:00] LABS: Glucose - Point of Care 319 mg/dl (70-99)
[2024-10-31] MEDS: LOVENOX 40 MG SC (17:02)
[2024-10-31] MEDS: NOVOLOG FLEXPEN-HIGH RESISTANCE 10 UNITS SC (17:55)
[2024-10-31 21:32] LABS: Glucose - Point of Care 314 mg/dl (70-99)
[2024-10-31] MEDS: LANTUS 0.4 UNITS SC (21:32)
[2024-10-31 23:18] VITALS: BP 149/84
[2024-11-01 06:39] LABS: % Basophils 0.2 % (0-2); % Eosinophils 2.6 % (0-6); % Immature Granulocytes 0.7 % (0-0.5); % Monocytes 11.5 % (1.7-9.3); Absolute Eosinophils 0.3 10^3/uL (0-0.7); Absolute Immature Granulocytes 0.1 10^3/uL (0-0.05); Absolute Lymphocytes 1.5 10^3/uL (1.2-3.4); Absolute Monocytes 1.2 10^3/uL (0.1-0.6); Absolute Neutrophils 7.1 10^3/uL (1.4-6.5); Hematocrit 38.1 % (39.0-52.0); Mean Corp Hgb Conc. 34.1 g/dL (33.0-37.0); Mean Corpuscular Hgb 29.1 pg (27.0-31.0); Mean Corpuscular Volume 85.4 fL (80.0-94.0); Mean Platelet Volume 10.3 fL (7.4-10.4); Nucleated Red Blood Cells % 0 % (-); Platelet Count 362 10^3/uL (130-400); Red Blood Cell Count 4.46 10^6/uL (4.70-6.10); Red Cell Dist. Width 12.9 % (11.5-14.5); White Blood Cell Count 10.2 10^3/uL (4.8-10.8)
[2024-11-01 06:57] LABS: Blood Urea Nitrogen 22 mg/dl (9-20); Calcium 9.4 mg/dl (8.4-10.2); Carbon Dioxide 25 mmol/L (22-30); Chloride 102 mmol/L (98-107); Estimated Creatinine Clearance 108 ml/min; Glucose 160 mg/dl (70-99); Potassium 4.7 mmol/L (3.5-5.1); Sodium 135 mmol/L (135-145); eGFR > 60.00
[2024-11-01 07:14] VITALS: BP 133/87
--- NOTE | 2024-11-01 07:38 | PN.DE.MGMTRT ---
Insulin Management
- -
11/01/2024: Diabetes Management Follow up
Patient admitted 10/27 with weakness, found to have new onset diabetes, glucose 978.
PMH: HTN, HLD, Hodgkins in remission since 2002. A1C on admission 14.8%, Cr 0.9, eGFR >60. Pt admits to recent thirst, freq. urination in the past week. Discussed the need for insulin, patient understands.
Patient is awake alert and oriented, sitting up in bed, able to discuss new diabetes.
10/31 Pre meal glucose 290 to 319 requiring 5 to 7 units of corrective insulin. AC novolog was increased to 20 units, HS lantus increased to 40 units.
11/01 Fasting glucose 160. Will increase AC novolog to 25 units and reduce high corrective to moderate. Will continue lantus 40 units @ hs.
Will cont to follow and make further insulin dose adjustments if necessary. Discussed with nurse.
Diabetes Nurse Educator provided instructions on insulin administration and glucose monitor.
RX for test strips and lancets in ambulatory orders.
Diabetes History
- -
Type of Diabetes: 2 requiring insulin
Pre-Admission Diabetes Regimen
11/01/24
06:13
Creatinine 0.9
Lab Results
Hemoglobin A1c 14.8 % (4.0-5.6) H 10/27/24 13:21
Insulin Pump Settings
IP Diabetes Regimen
10/31/24 10/31/24 10/31/24
07:44 09:21 11:41
Glucose
POC Glucose 229 H 290 H 273 H
10/31/24 10/31/24 11/01/24
16:59 21:31 06:13
Glucose 160 H
POC Glucose 319 H 314 H
Meal type: Dinner
Meal type: Lunch
Meal type: Breakfast
Amount consumed: 95%
Amount consumed: 85%
Amount consumed: 80%
Patient Education
[2024-11-01 07:53] LABS: Glucose - Point of Care 152 mg/dl (70-99)
--- NOTE | 2024-11-01 07:56 | VATNOTE ---
R arm swelling noted on assessment of peripheral IVs. Pt had 18g in R forearm that this VAT RN decided to D/C. Hospitalist notified that U/S recommended. Will continue to monitor.
[2024-11-01] MEDS: NEURONTIN 300 MG PO ×3 (08:00→21:30)
[2024-11-01] MEDS: LIPITOR 10 MG PO (08:00)
[2024-11-01] MEDS: NOVOLOG FLEXPEN 25 UNITS SC ×3 (08:04→16:42)
[2024-11-01] MEDS: NOVOLOG FLEXPEN-MODERATE RESISTANCE 1 UNITS SC (08:05)
[2024-11-01] MEDS: VITAMIN D3 (cholecalciferol) 50 MCG PO (08:06)
[2024-11-01] MEDS: NORVASC 10 MG PO (08:06)
[2024-11-01] MEDS: B COMPLEX w/VITAMIN C 1 CAPLET PO (08:06)
[2024-11-01] MEDS: NOVOLOG FLEXPEN SC (08:10)
[2024-11-01] MEDS: NOVOLOG FLEXPEN-HIGH RESISTANCE SC (08:11)
[2024-11-01 11:35] LABS: Glucose - Point of Care 223 mg/dl (70-99)
[2024-11-01] MEDS: NOVOLOG FLEXPEN-MODERATE RESISTANCE 3 UNITS SC ×2 (11:54→16:43)
[2024-11-01 12:21] VITALS: BP 131/86; PULSE 95; O2SAT 96
--- NOTE | 2024-11-01 13:43 | CM ---
PT rec SNF
Referrals in careport
Patient prefers [facility]
Updated [facility] liaison
will need ins authorization
PLAN: SNF, pending bed availability when medically stable
--- NOTE | 2024-11-01 15:09 | W.PN.HOSP.TC ---
Today's Communication/Plan
-
Adjust insulin dosing.
Bilateral lower extremity Doppler as a workup for fever of unknown origin.
Physical therapy assessment
Assessment / Plan
Assessment / Plan
IMPRESSION:
Patient is 59 years old with history of hypertension, hyperlipidemia, chronic pain and spinal stenosis, obesity who came to the ER with generalized fatigue, muscle cramp, blurry vision found to have new onset diabetes mellitus not in DKA. Hemoglobin
A1c came back elevated at 14.5. Started on Lantus/lispro.
Adjusting insulin based on current blood sugar read and ordered PT consult for generalized fatigue.
Assessment/plan
Newly diagnosed diabetes with severe hyperglycemia
Preserved mental status not meeting criteria for HHNK.
Noted with mild bilateral hydroxybutyrate elevation, and mucous disorder including conduction alkalosis and mild gap acidosis, although not quite meet criteria for DKA.
Hemoglobin A1c 14.5
Continue aggressive hydration with isotonic fluids.
Okay to advance diet.
Initiate basal bolus protocol with serial Accu-Cheks.
Initiated on insulin Lantus/AC NovoLog.
Insulin teaching
TSH within normal limits
Remains hyperglycemic
Insulin dose adjusted increasing Lantus 40 at bedtime/NovoLog 25 AC. Continue basal bolus protocol.
Diabetic neuropathy
Diffuse body ache
Bilateral lower extremity
Initiated on Neurontin
Continue Flexeril
Fever leukocytosis
No sign of localized infection.
Chest x-ray done in admission shows no acute finding.
UA on admission shows no infection.
Elevated inflammatory markers: CRP/sed rate.
Blood cultures negative to date
Complains of right shoulder pain with x-ray showed no acute abnormalities. Pain improving with addition of Neurontin. Given trending down fever, WBC, no indication for additional imaging.
Has a chronic low back pain which patient reports no exacerbation at this point
Right upper extremity edema. Check Doppler ultrasound
In addition given fever with no apparent source, we check bilateral lower extremity Doppler.
Mild rhabdomyolysis, nontraumatic.
Improved with hydration
Essential hypertension.
EKG with normal sinus rhythm.
No prior history of CAD.
Echocardiogram with preserved biventricular function
Continue amlodipine
Albuminuria. May benefit from addition of SHAE or ARB's. Monitor BP trend.
Continue statin
Chronic back pain/spinal stenosis
Hold ibuprofen acutely.
PT/OT
History of alcohol use disorder
patient claims to be sober recently.
CODE STATUS: Full code
DVT prophylaxis: Lovenox
Diet: Diabetic diet
Anticipated Discharge: 24 - 48 hours
Subjective/Interval History
-
Date of Service: November 01, 2024
Objective Data
-
Labs:
Laboratory Results
11/01/24
06:13
WBC 10.2
Hgb 13.0
Hct 38.1 L
Plt Count 362
Sodium 135
Potassium 4.7
Chloride 102
Carbon Dioxide 25
BUN 22 H
Creatinine 0.9
Glucose 160 H
Calcium 9.4
Vital Signs:
Vital Signs
Temp Pulse Resp BP Pulse Ox
99.5 F 92 18 135/87 96
11/01/24 07:14 11/01/24 08:06 11/01/24 07:14 11/01/24 08:06 11/01/24 10:38
I&O
10/31/24 11/01/24 11/02/24
06:59 06:59 06:59
Intake Total 2640 / 2640 1130 / 1130
Output Total 4200 / 4200 2475 / 2475
Balance -1560 / -1560 -1345 / -1345
Physical Exam
-
General: Well Developed, Well Nourished, No Apparent Distress, Comfortable and Obese
HEENT: Normocephalic, Atraumatic, Moist Mucous Membranes, No Ptosis, PERRLA and Nose Appears Normal
Respiratory: Clear to Auscultation and Non Labored Respirations
Cardiac: Regular Rhythm and S1/S2
Breast: Deferred by me
GI: Soft, Nontender, Nondistended and Normal Bowel Sounds
Genito-urinary: No Costovertebral Tender
Musculoskeletal: No Clubbing, No Cyanosis and No Edema
Skin: Warm
Neuro: Awake, Alert, Oriented, AO x 3 and No Motor Deficits
Psych: Calm
[2024-11-01] MEDS: FLEXERIL 10 MG PO (15:15)
[2024-11-01 16:00] VITALS: BP 155/87
--- NOTE | 2024-11-01 16:01 | PTCARENOTE ---
11/01/2024 DIABETES FOLLOW UP
Spoke to Otilio, he feels comfortable with insulin injection and SMBG with glucometer. Unsure of d/c plan. I provided list of endocrinologists as he requested.
[2024-11-01 16:39] LABS: Glucose - Point of Care 222 mg/dl (70-99)
[2024-11-01] MEDS: TYLENOL 650 MG PO ×2 (16:42→23:18)
[2024-11-01] MEDS: LOVENOX 40 MG SC (17:18)
[2024-11-01 21:30] LABS: Glucose - Point of Care 183 mg/dl (70-99)
[2024-11-01] MEDS: LANTUS 0.4 UNITS SC (21:30)
[2024-11-01 23:15] VITALS: BP 145/82
[2024-11-02 07:27] LABS: Glucose - Point of Care 181 mg/dl (70-99)
[2024-11-02 07:49] VITALS: BP 139/87
[2024-11-02] MEDS: B COMPLEX w/VITAMIN C 1 CAPLET PO (08:04)
[2024-11-02] MEDS: LIPITOR 10 MG PO (08:04)
[2024-11-02] MEDS: NORVASC 10 MG PO (08:04)
[2024-11-02] MEDS: NEURONTIN 300 MG PO ×3 (08:04→21:35)
[2024-11-02] MEDS: VITAMIN D3 (cholecalciferol) 50 MCG PO (08:04)
[2024-11-02] MEDS: NOVOLOG FLEXPEN 25 UNITS SC (08:05)
[2024-11-02] MEDS: NOVOLOG FLEXPEN-MODERATE RESISTANCE 1 UNITS SC ×2 (08:05→12:48)
[2024-11-02 08:40] LABS: % Basophils 0.4 % (0-2); % Immature Granulocytes 0.7 % (0-0.5); % Lymphocytes 16.1 % (20.5-51.1); % Monocytes 11.3 % (1.7-9.3); % Neutrophils 68.5 % (42.2-75.2); Absolute Eosinophils 0.3 10^3/uL (0-0.7); Absolute Immature Granulocytes 0.1 10^3/uL (0-0.05); Absolute Lymphocytes 1.6 10^3/uL (1.2-3.4); Absolute Monocytes 1.1 10^3/uL (0.1-0.6); Absolute Neutrophils 6.9 10^3/uL (1.4-6.5); Hematocrit 38.8 % (39.0-52.0); Hemoglobin 13.1 g/dL (13.0-18.0); Mean Corp Hgb Conc. 33.8 g/dL (33.0-37.0); Mean Corpuscular Hgb 29.1 pg (27.0-31.0); Mean Corpuscular Volume 86.2 fL (80.0-94.0); Mean Platelet Volume 10.1 fL (7.4-10.4); Nucleated Red Blood Cells % 0 % (-); Platelet Count 412 10^3/uL (130-400)
--- NOTE | 2024-11-02 09:21 | PN.DE.MGMTRT ---
Insulin Management
- -
11/02/2024: Diabetes Management Follow up
Patient admitted 10/27 with weakness, found to have new onset diabetes, glucose 978.
PMH: HTN, HLD, Hodgkins in remission since 2002. A1C on admission 14.8%, Cr 0.9, eGFR >60. Pt admits to recent thirst, freq. urination in the past week. Discussed the need for insulin, patient understands.
Patient is awake alert and oriented, sitting out of bed in chair, eating lunch, able to discuss new diabetes.
11/01 Pre meal glucose 160 to 223 requiring 3 units of corrective insulin. AC novolog was increased to 25 units, HS lantus increased to 40 units.
11/02 Fasting glucose 181. Will increase AC novolog to 28 units, continue moderate corrective and increase Lantus 42 units @ hs.
Will cont to follow and make further insulin dose adjustments if necessary. Discussed with nurse.
Diabetes Nurse Educator provided instructions on insulin administration and glucose monitor. Patient states he feels confident self injecting.
RX for test strips and lancets in ambulatory orders.
Diabetes History
- -
Type of Diabetes: 2 requiring insulin
Pre-Admission Diabetes Regimen
Lab Results
Hemoglobin A1c 14.8 % (4.0-5.6) H 10/27/24 13:21
Insulin Pump Settings
IP Diabetes Regimen
11/01/24 11/01/24 11/01/24
11:34 16:38 21:29
POC Glucose 223 H 222 H 183 H
11/02/24
07:25
POC Glucose 181 H
Patient Education
[2024-11-02 09:58] LABS: Blood Urea Nitrogen 22 mg/dl (9-20); Calcium 9.2 mg/dl (8.4-10.2); Carbon Dioxide 24 mmol/L (22-30); Chloride 97 mmol/L (98-107); Estimated Creatinine Clearance 108 ml/min; Glucose 237 mg/dl (70-99); Sodium 133 mmol/L (135-145); eGFR > 60.00
[2024-11-02] MEDS: MIRALAX 17 GRAMS PO (10:49)
[2024-11-02 11:12] LABS: ALT (SGPT) 48 U/L (0-50); AST (SGOT) 43 U/L (17-59); Albumin 2.7 g/dl (3.5-5.0); Alkaline Phosphatase 255 U/L (38-126); Direct Bilirubin 0.3 mg/dl (0.0-0.4); Total Bilirubin 0.7 mg/dl (0.2-1.3); Total Protein 5.5 g/dl (6.3-8.2)
[2024-11-02 11:30] LABS: COVID-19 Antigen Negative (Negative)
--- NOTE | 2024-11-02 11:41 | CM ---
Patient seen at bedside.
Returned to room from Ultrasound
Patient prefers [facility]
Referral in [facility] -
WILL NEED TO OBTAIN INS AUTH
[facility] NPI #: [id number]
Dr. Nikolai Cooney NPI #: [id number]
Report #: [phone]
Fax #: [phone]
PLAN: SNF, when medically stable, will need ins auth
[2024-11-02 11:46] LABS: Glucose - Point of Care 199 mg/dl (70-99)
[2024-11-02] MEDS: NOVOLOG FLEXPEN 28 UNITS SC ×2 (12:48→16:59)
[2024-11-02 13:57] VITALS: BP 140/73; PULSE 93; O2SAT 96
--- NOTE | 2024-11-02 15:02 | W.PN.HOSP.TC ---
Today's Communication/Plan
-
Adjust insulin regimen.
Monitor for recurrent fever
Assessment / Plan
Assessment / Plan
IMPRESSION:
Patient is 59 years old with history of hypertension, hyperlipidemia, chronic pain and spinal stenosis, obesity who came to the ER with generalized fatigue, muscle cramp, blurry vision found to have new onset diabetes mellitus not in DKA. Hemoglobin
A1c came back elevated at 14.5. Started on Lantus/lispro.
Adjusting insulin based on current blood sugar read and ordered PT consult for generalized fatigue.
Assessment/plan
Newly diagnosed diabetes with severe hyperglycemia
Preserved mental status not meeting criteria for HHNK.
Noted with mild bilateral hydroxybutyrate elevation, and mucous disorder including conduction alkalosis and mild gap acidosis, although not quite meet criteria for DKA.
Hemoglobin A1c 14.5
Continue aggressive hydration with isotonic fluids.
Okay to advance diet.
Initiate basal bolus protocol with serial Accu-Cheks.
Initiated on insulin Lantus/AC NovoLog.
Insulin teaching
TSH within normal limits
Remains hyperglycemic
Insulin dose adjusted increasing Lantus 42 at bedtime/NovoLog 28 AC. Continue basal bolus protocol.
Diabetic neuropathy
Diffuse body ache
Bilateral lower extremity
Initiated on Neurontin
Continue Flexeril
Fever leukocytosis
No sign of localized infection.
COVID/influenza negative
Chest x-ray done in admission shows no acute finding.
UA on admission shows no infection.
Elevated inflammatory markers: CRP/sed rate.
Blood cultures negative to date
Complains of right shoulder pain with x-ray showed no acute abnormalities. Pain improving with addition of Neurontin. Given trending down fever, WBC, no indication for additional imaging.
Has a chronic low back pain which patient reports no exacerbation at this point
Right upper extremity edema.
Right upper extremity and bilateral lower extremity Doppler negative for DVT
Mild rhabdomyolysis, nontraumatic.
Improved with hydration
Essential hypertension.
EKG with normal sinus rhythm.
No prior history of CAD.
Echocardiogram with preserved biventricular function
Continue amlodipine
Albuminuria. May benefit from addition of SHAE or ARB's. Monitor BP trend.
Continue statin
Chronic back pain/spinal stenosis
Hold ibuprofen acutely.
PT/OT
History of alcohol use disorder
patient claims to be sober recently.
CODE STATUS: Full code
DVT prophylaxis: Lovenox
Diet: Diabetic diet
Anticipated Discharge: 24 - 48 hours
Subjective/Interval History
-
Date of Service: November 02, 2024
Objective Data
-
Labs:
Laboratory Results
11/02/24
08:12
WBC 10.0
Hgb 13.1
Hct 38.8 L
Plt Count 412 H
Sodium 133 L
Potassium 5.0
Chloride 97 L
Carbon Dioxide 24
BUN 22 H
Creatinine 0.9
Glucose 237 H
Calcium 9.2
Total Bilirubin 0.7
AST 43
ALT 48
Alkaline Phosphatase 255 H
Vital Signs:
Vital Signs
Temp Pulse Resp BP Pulse Ox
97.9 F 94 20 139/87 96
11/02/24 07:49 11/02/24 08:04 11/02/24 07:49 11/02/24 08:04 11/02/24 09:46
I&O
11/01/24 11/02/24 11/03/24
06:59 06:59 06:59
Intake Total 1130 / 1130 2670 / 2670
Output Total 2475 / 2475 1350 / 1350
Balance -1345 / -1345 1320 / 1320
Physical Exam
-
General: Well Developed, Well Nourished, No Apparent Distress, Comfortable and Obese
HEENT: Normocephalic, Atraumatic, Moist Mucous Membranes, No Ptosis, PERRLA and Nose Appears Normal
Respiratory: Clear to Auscultation and Non Labored Respirations
Cardiac: Regular Rhythm and S1/S2
Breast: Deferred by me
GI: Soft, Nontender, Nondistended and Normal Bowel Sounds
Genito-urinary: No Costovertebral Tender
Musculoskeletal: No Clubbing, No Cyanosis and No Edema
Skin: Warm
Neuro: Awake, Alert, Oriented, AO x 3 and No Motor Deficits
Psych: Calm
[2024-11-02 15:59] VITALS: BP 128/89
[2024-11-02 16:04] LABS: Glucose - Point of Care 242 mg/dl (70-99)
[2024-11-02] MEDS: NOVOLOG FLEXPEN-MODERATE RESISTANCE 3 UNITS SC (16:59)
[2024-11-02] MEDS: LOVENOX 40 MG SC (17:00)
[2024-11-02 21:28] LABS: Glucose - Point of Care 123 mg/dl (70-99)
[2024-11-02] MEDS: LANTUS 0.42 UNITS SC (21:35)
[2024-11-02] MEDS: FLEXERIL 10 MG PO (22:41)
[2024-11-02] MEDS: TYLENOL 650 MG PO (22:41)
[2024-11-02 23:00] VITALS: BP 138/85
[2024-11-03] MEDS: ROXICODONE 5 MG PO (00:14)
[2024-11-03] MEDS: TYLENOL 650 MG PO ×2 (03:44→08:59)
[2024-11-03 07:10] VITALS: BP 146/83
[2024-11-03 08:07] LABS: Glucose - Point of Care 170 mg/dl (70-99)
[2024-11-03] MEDS: LIPITOR 10 MG PO (08:25)
[2024-11-03] MEDS: NEURONTIN 300 MG PO ×3 (08:25→21:06)
[2024-11-03] MEDS: MIRALAX 17 GRAMS PO (08:25)
[2024-11-03] MEDS: NORVASC 10 MG PO (08:25)
[2024-11-03] MEDS: B COMPLEX w/VITAMIN C 1 CAPLET PO (08:25)
[2024-11-03] MEDS: NOVOLOG FLEXPEN 28 UNITS SC (08:26)
[2024-11-03] MEDS: VITAMIN D3 (cholecalciferol) 50 MCG PO (08:26)
[2024-11-03] MEDS: NOVOLOG FLEXPEN-MODERATE RESISTANCE 1 UNITS SC ×2 (08:26→17:04)
--- NOTE | 2024-11-03 08:45 | PN.DE.MGMTRT ---
Insulin Management
- -
11/03/2024: Diabetes Management Follow up
Patient admitted 10/27 with weakness, found to have new onset diabetes, glucose 978.
PMH: HTN, HLD, Hodgkins in remission since 2002. A1C on admission 14.8%, Cr 0.9, eGFR >60. Pt admits to recent thirst, freq. urination in the past week. Discussed the need for insulin, patient understands.
Patient is awake alert and oriented, sitting out of bed in chair, able to discuss new diabetes.
4/ Pre meal glucose 123 to 242 requiring 3 units of corrective insulin. AC novolog was increased to 28 units, HS lantus increased to 42 units.
11/03 Fasting glucose 170. Will increase AC novolog to 30 units, continue moderate corrective and increase Lantus 44 units @ hs.
Will cont to follow and make further insulin dose adjustments if necessary. Discussed with nurse.
Diabetes Nurse Educator provided instructions on insulin administration and glucose monitor. Patient states he feels confident self injecting.
RX for test strips and lancets in ambulatory orders.
Diabetes History
- -
Type of Diabetes: 2 requiring insulin
Pre-Admission Diabetes Regimen
11/02/24
08:12
Creatinine 0.9
Lab Results
Hemoglobin A1c 14.8 % (4.0-5.6) H 10/27/24 13:21
Insulin Pump Settings
IP Diabetes Regimen
11/02/24 11/02/24 11/02/24
08:12 11:45 16:03
Glucose 237 H
POC Glucose 199 H 242 H
11/02/24 11/03/24
21:27 08:05
Glucose
POC Glucose 123 H 170 H
Meal type: Dinner
Meal type: Lunch
Meal type: Breakfast
Amount consumed: 100%
Amount consumed: 100%
Patient Education
[2024-11-03] MEDS: NOVOLOG FLEXPEN SC (09:50)
[2024-11-03 11:31] LABS: Glucose - Point of Care 223 mg/dl (70-99)
[2024-11-03] MEDS: NOVOLOG FLEXPEN-MODERATE RESISTANCE 3 UNITS SC (12:30)
[2024-11-03] MEDS: NOVOLOG FLEXPEN 30 UNITS SC ×2 (12:32→17:04)
[2024-11-03 15:00] VITALS: BP 129/79
--- NOTE | 2024-11-03 15:05 | W.PN.HOSP.TC ---
Today's Communication/Plan
-
Adjust insulin
Monitor temperature curve for recurrent fever
PT assessment
Disposition likely to retirement/rehab
Assessment / Plan
Assessment / Plan
IMPRESSION:
Patient is 59 years old with history of hypertension, hyperlipidemia, chronic pain and spinal stenosis, obesity who came to the ER with generalized fatigue, muscle cramp, blurry vision found to have new onset diabetes mellitus not in DKA. Hemoglobin
A1c came back elevated at 14.5. Started on Lantus/lispro.
Adjusting insulin based on current blood sugar read and ordered PT consult for generalized fatigue.
Assessment/plan
Newly diagnosed diabetes with severe hyperglycemia
Preserved mental status not meeting criteria for HHNK.
Noted with mild bilateral hydroxybutyrate elevation, and mucous disorder including conduction alkalosis and mild gap acidosis, although not quite meet criteria for DKA.
Hemoglobin A1c 14.5
Continue aggressive hydration with isotonic fluids.
Okay to advance diet.
Initiate basal bolus protocol with serial Accu-Cheks.
Initiated on insulin Lantus/AC NovoLog.
Insulin teaching
TSH within normal limits
Remains hyperglycemic
Insulin dose adjusted increasing Lantus 44 at bedtime/NovoLog 30 AC. Continue basal bolus protocol.
Diabetic neuropathy
Diffuse body ache
Bilateral lower extremity
Initiated on Neurontin
Continue Flexeril
Fever leukocytosis
No sign of localized infection.
COVID/influenza negative
Chest x-ray done in admission shows no acute finding.
UA on admission shows no infection.
Elevated inflammatory markers: CRP/sed rate.
Blood cultures negative to date
Complains of right shoulder pain with x-ray showed no acute abnormalities. Pain improving with addition of Neurontin. Given trending down fever, WBC, no indication for additional imaging.
Has a chronic low back pain which patient reports no exacerbation at this point
Right upper extremity edema.
Right upper extremity and bilateral lower extremity Doppler negative for DVT
Mild rhabdomyolysis, nontraumatic.
Improved with hydration
Essential hypertension.
EKG with normal sinus rhythm.
No prior history of CAD.
Echocardiogram with preserved biventricular function
Continue amlodipine
Albuminuria. May benefit from addition of SHAE or ARB's. Monitor BP trend.
Continue statin
Chronic back pain/spinal stenosis
Hold ibuprofen acutely.
PT/OT
History of alcohol use disorder
patient claims to be sober recently.
CODE STATUS: Full code
DVT prophylaxis: Lovenox
Diet: Diabetic diet
Anticipated Discharge: 24 - 48 hours
Subjective/Interval History
-
Date of Service: November 03, 2024
Objective Data
-
Vital Signs:
Vital Signs
Temp Pulse Resp BP Pulse Ox
97.9 F 85 20 146/83 95
11/03/24 07:10 11/03/24 08:25 11/03/24 07:10 11/03/24 08:25 11/03/24 08:45
I&O
11/02/24 11/03/24 11/04/24
06:59 06:59 06:59
Intake Total 2670 / 2670 3120 / 3120
Output Total 1350 / 1350 4160 / 4160
Balance 1320 / 1320 -1040 / -1040
Physical Exam
-
General: Well Developed, Well Nourished, No Apparent Distress, Comfortable and Obese
HEENT: Normocephalic, Atraumatic, Moist Mucous Membranes, No Ptosis, PERRLA and Nose Appears Normal
Respiratory: Clear to Auscultation and Non Labored Respirations
Cardiac: Regular Rhythm and S1/S2
Breast: Deferred by me
GI: Soft, Nontender, Nondistended and Normal Bowel Sounds
Genito-urinary: No Costovertebral Tender
Musculoskeletal: No Clubbing, No Cyanosis and No Edema
Skin: Warm
Neuro: Awake, Alert, Oriented, AO x 3 and No Motor Deficits
Psych: Calm
[2024-11-03 16:26] LABS: Glucose - Point of Care 173 mg/dl (70-99)
--- NOTE | 2024-11-03 17:02 | CM ---
Authorization process initiated for [facility] by [employer]
Faxed Clinicals along with form to [facility] ([place]) Fax #: [phone]
Byron Ismaytony , Dr. Nikolai Cooney NPI #:[id number]
PLAN: [facility], pending ins auth approval
[2024-11-03] MEDS: LOVENOX 40 MG SC (17:07)
[2024-11-03 20:28] LABS: Glucose - Point of Care 124 mg/dl (70-99)
[2024-11-03] MEDS: LANTUS 0.44 UNITS SC (21:06)
[2024-11-03 23:14] VITALS: BP 139/78
[2024-11-04] MEDS: TYLENOL 650 MG PO (00:03)
[2024-11-04] MEDS: FLEXERIL 10 MG PO ×2 (00:03→21:16)
[2024-11-04 07:26] LABS: Glucose - Point of Care 163 mg/dl (70-99)
[2024-11-04 07:41] VITALS: BP 136/79
[2024-11-04 07:53] LABS: % Basophils 0.5 % (0-2); % Eosinophils 2.6 % (0-6); % Immature Granulocytes 0.5 % (0-0.5); % Lymphocytes 14.9 % (20.5-51.1); % Monocytes 9.6 % (1.7-9.3); % Neutrophils 71.9 % (42.2-75.2); Absolute Basophils 0.1 10^3/uL (0-0.2); Absolute Eosinophils 0.3 10^3/uL (0-0.7); Absolute Immature Granulocytes 0.1 10^3/uL (0-0.05); Absolute Lymphocytes 1.6 10^3/uL (1.2-3.4); Absolute Monocytes 1.1 10^3/uL (0.1-0.6); Absolute Neutrophils 7.9 10^3/uL (1.4-6.5); Hematocrit 34.6 % (39.0-52.0); Hemoglobin 11.9 g/dL (13.0-18.0); Mean Corp Hgb Conc. 34.4 g/dL (33.0-37.0); Mean Corpuscular Volume 84.4 fL (80.0-94.0); Mean Platelet Volume 9.3 fL (7.4-10.4); Nucleated Red Blood Cells % 0 % (-); Platelet Count 447 10^3/uL (130-400); Red Cell Dist. Width 13.1 % (11.5-14.5)
[2024-11-04 08:07] LABS: Blood Urea Nitrogen 20 mg/dl (9-20); Calcium 9.2 mg/dl (8.4-10.2); Carbon Dioxide 26 mmol/L (22-30); Chloride 101 mmol/L (98-107); Estimated Creatinine Clearance 108 ml/min; Glucose 162 mg/dl (70-99); Potassium 4.6 mmol/L (3.5-5.1); Sodium 134 mmol/L (135-145); eGFR > 60.00
--- NOTE | 2024-11-04 08:40 | PN.DE.MGMTRT ---
Insulin Management
- -
11/04/2024: Diabetes Management Follow up
Patient admitted 10/27 with weakness, found to have new onset diabetes, glucose 978.
PMH: HTN, HLD, Hodgkins in remission since 2002. A1C on admission 14.8%, Cr 0.9, eGFR >60. Pt admits to recent thirst, freq. urination in the past week. Discussed the need for insulin, patient understands.
Patient is awake alert and oriented, resting in bed, c/o constipation ad BLE pain to legs, able to discuss new diabetes.
/ Pre meal glucose 123 to 242 requiring 3 units of corrective insulin. AC NovoLog was increased to 30 units
11/03 FBG 170, HS Lantus was increased to 44 units.
11/04 Fasting glucose 162, premeal glucose has improved to 173 pre-dinner and 124 @ HS
Will make no changes to current regimen: Lantus 44 units @ hs and AC NovoLog to 30 units with moderate corrective.
Will cont to follow and make further insulin dose adjustments if necessary. Discussed with nurse.
Diabetes Nurse Educator provided instructions on insulin administration and glucose monitor. Patient states he feels confident self injecting.
RX for test strips and lancets in ambulatory orders.
Diabetes History
- -
Type of Diabetes: 2 requiring insulin
Pre-Admission Diabetes Regimen
11/04/24
07:36
Creatinine 0.9
Lab Results
Hemoglobin A1c 14.8 % (4.0-5.6) H 10/27/24 13:21
Insulin Pump Settings
IP Diabetes Regimen
11/03/24 11/03/24 11/03/24
11:28 16:25 20:27
Glucose
POC Glucose 223 H 173 H 124 H
11/04/24 11/04/24
07:25 07:36
Glucose 162 H
POC Glucose 163 H
Meal type: Lunch
Meal type: Breakfast
Amount consumed: 100%
Amount consumed: 100%
Patient Education
[2024-11-04] MEDS: NEURONTIN 300 MG PO ×3 (09:02→21:16)
[2024-11-04] MEDS: MIRALAX 17 GRAMS PO (09:02)
[2024-11-04] MEDS: LIPITOR 10 MG PO (09:02)
[2024-11-04] MEDS: NORVASC 10 MG PO (09:02)
[2024-11-04] MEDS: B COMPLEX w/VITAMIN C 1 CAPLET PO (09:02)
[2024-11-04] MEDS: NOVOLOG FLEXPEN 30 UNITS SC ×3 (09:09→17:11)
[2024-11-04] MEDS: NOVOLOG FLEXPEN-MODERATE RESISTANCE 1 UNITS SC (09:10)
[2024-11-04] MEDS: VITAMIN D3 (cholecalciferol) 50 MCG PO (09:14)
--- NOTE | 2024-11-04 11:16 | CM ---
Addendum entered by Cindy Diehl 11/04/24 15:40:
Notified facility that patient had a bowel movement; they will accept patient tomorrow; [employer] has transport forms
Addendum entered by Cindy Diehl 11/04/24 14:26:
Mesfin Triana, notified via phone; informed that discharge on hold until patient has a BM
Addendum entered by Cindy Diehl 11/04/24 13:30:
Discharge on hold until patient has a bowel movement.
[facility] will accept him after he has a BM; and will accept over the weekend
Addendum entered by Cindy Diehl 11/04/24 12:33:
CM notified primary contact/Mesfin triana, via phone; informed of discharge plan and transport time
Addendum entered by Cindy Diehl 11/04/24 12:19:
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
Addendum entered by Cindy Diehl 11/04/24 12:07:
[facility]
Report # [phone]

Original Note:
Authorization approved starting today, 11/04/2024 - 11/10/2024
Authorization # [id number]
Updates due 11/09/2024; Fax to # [phone]
Plan: Discharge to [facility] today via ambulance
[2024-11-04 11:23] LABS: Glucose - Point of Care 230 mg/dl (70-99)
--- NOTE | 2024-11-04 12:09 | W.DS.TRANS ---
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
-
Discharge Instructions:
Discharge Diagnosis/Procedures Newly diagnosed diabetes with severe
hyperglycemia
Diet Diabetic, Carb Controlled
Instructions:
Stand-Alone Forms:
Changes to Home Medications: Yes
Discharge Medications:
DC Medications w/original date entered in [employer]
amlodipine 10 mg tablet 10 mg PO DAILY Blood pressure 10/07/22
atorvastatin 10 mg tablet 10 mg PO DAILY High cholesterol 10/07/22
cyclobenzaprine 10 mg tablet 10 mg PO HSPRN PRN muscle spams 10/27/24
vitamin B complex 1 tab PO DAILY Supplement 10/27/24
blood sugar diagnostic (Contour Next Test Strips) ##200 10/28/24
cholecalciferol (vitamin D3) 50 mcg (2,000 unit) tablet (Vitamin D3) 50 mcg PO DAILY Supplement 10/28/24
lancets 21 gauge (Color Lancets) ##200 10/28/24
Insulin Glargine Lantus [Lantus] 44 units As Directed mls/hr SC HS 11/04/24
acetaminophen 325 mg tablet 650 mg (2 x 325 mg) PO Q4HPRN PRN pain and fever above 100.4F #30 tabs 11/04/24
docusate sodium 100 mg capsule 100 mg PO BIDPRN PRN constipation #30 caps 11/04/24
gabapentin 300 mg capsule 300 mg PO TID #90 caps 11/04/24
insulin aspart U-100 100 unit/mL (3 mL) subcutaneous pen 30 unit (0.3 mL) SC AC #15 mL 11/04/24
polyethylene glycol 3350 17 gram oral powder packet 17 g PO DAILY #30 ea 11/04/24
Home Medication Changes
Insulin, gabapentin started
Pending Results: No
[2024-11-04] MEDS: NOVOLOG FLEXPEN-MODERATE RESISTANCE 3 UNITS SC (12:12)
[2024-11-04 12:15] VITALS: BP 118/75; PULSE 94; O2SAT 95
--- NOTE | 2024-11-04 12:44 | PTCARENOTE ---
patient sitting on edge of bed, tolerating activity. was able to administer his pre lunch insulin with good sterile technique, tolerating diet, vss, for discharge to [facility] today, will continue to monitor.
--- NOTE | 2024-11-04 13:24 | PTCARENOTE ---
patient documented BM 10/26, did verify with patient. [facility] can't admit patient until he had BM. Dr. Gonzalez notified and will order Dulcolax Suppository. patient made aware, will continue to monitor.
[2024-11-04] MEDS: DULCOLAX 10 MG RECTAL (13:40)
--- NOTE | 2024-11-04 14:48 | W.PN.HOSP.TC ---
Today's Communication/Plan
-
Reasonable fasting and postprandial blood glucose levels on current Lantus/NovoLog regimen.
Undergoing insulin injection teaching.
Bowel regimen with addition of Dulcolax rectally.
Discharge planning/SNF pending bowel movement
Assessment / Plan
Assessment / Plan
IMPRESSION:
Patient is 59 years old with history of hypertension, hyperlipidemia, chronic pain and spinal stenosis, obesity who came to the ER with generalized fatigue, muscle cramp, blurry vision found to have new onset diabetes mellitus not in DKA. Hemoglobin
A1c came back elevated at 14.5. Started on Lantus/lispro.
Adjusting insulin based on current blood sugar read and ordered PT consult for generalized fatigue.
Assessment/plan
Newly diagnosed diabetes with severe hyperglycemia
Preserved mental status not meeting criteria for HHNK.
Noted with mild bilateral hydroxybutyrate elevation, and mucous disorder including conduction alkalosis and mild gap acidosis, although not quite meet criteria for DKA.
Hemoglobin A1c 14.5
Continue aggressive hydration with isotonic fluids.
Okay to advance diet.
Initiate basal bolus protocol with serial Accu-Cheks.
Initiated on insulin Lantus/AC NovoLog.
Insulin teaching
TSH within normal limits
Remains hyperglycemic
Insulin dose adjusted increasing Lantus 44 at bedtime/NovoLog 30 AC. Continue basal bolus protocol.
Diabetic neuropathy
Diffuse body ache
Bilateral lower extremity
Initiated on Neurontin
Continue Flexeril
Fever leukocytosis
No sign of localized infection.
COVID/influenza negative
Chest x-ray done in admission shows no acute finding.
UA on admission shows no infection.
Elevated inflammatory markers: CRP/sed rate.
Blood cultures negative to date
Complains of right shoulder pain with x-ray showed no acute abnormalities. Pain improving with addition of Neurontin. Given trending down fever, WBC, no indication for additional imaging.
Has a chronic low back pain which patient reports no exacerbation at this point
Right upper extremity edema.
Right upper extremity and bilateral lower extremity Doppler negative for DVT
Mild rhabdomyolysis, nontraumatic.
Improved with hydration
Essential hypertension.
EKG with normal sinus rhythm.
No prior history of CAD.
Echocardiogram with preserved biventricular function
Continue amlodipine
Albuminuria. May benefit from addition of SHAE or ARB's. Monitor BP trend.
Continue statin
Chronic back pain/spinal stenosis
Hold ibuprofen acutely.
PT/OT
History of alcohol use disorder
patient claims to be sober recently.
CODE STATUS: Full code
DVT prophylaxis: Lovenox
Diet: Diabetic diet
Anticipated Discharge: Within 24 hours
Subjective/Interval History
-
Date of Service: November 04, 2024
Objective Data
-
Labs:
Laboratory Results
11/04/24
07:36
WBC 11.0 H
Hgb 11.9 L
Hct 34.6 L
Plt Count 447 H
Sodium 134 L
Potassium 4.6
Chloride 101
Carbon Dioxide 26
BUN 20
Creatinine 0.9
Glucose 162 H
Calcium 9.2
Vital Signs:
Vital Signs
Temp Pulse Resp BP Pulse Ox
99.7 F 90 16 136/79 98
11/04/24 07:41 11/04/24 07:41 11/04/24 07:41 11/04/24 07:41 11/04/24 07:41
I&O
11/03/24 11/04/24 11/05/24
06:59 06:59 06:59
Intake Total 3120 / 3120 3440 / 3440
Output Total 4160 / 4160 4125 / 4125
Balance -1040 / -1040 -685 / -685
Physical Exam
-
General: Well Developed, Well Nourished, No Apparent Distress, Comfortable and Obese
HEENT: Normocephalic, Atraumatic, Moist Mucous Membranes, No Ptosis, PERRLA and Nose Appears Normal
Respiratory: Clear to Auscultation and Non Labored Respirations
Cardiac: Regular Rhythm and S1/S2
Breast: Deferred by me
GI: Soft, Nontender, Nondistended and Normal Bowel Sounds
Genito-urinary: No Costovertebral Tender
Musculoskeletal: No Clubbing, No Cyanosis and No Edema
Skin: Warm
Neuro: Awake, Alert, Oriented, AO x 3 and No Motor Deficits
Psych: Calm
--- NOTE | 2024-11-04 14:59 | PTCARENOTE ---
patient continent of large formed brown BM in commode. patient transferred with max assist x2. Dr. Gonzalez updated, will see if patient can still go to [facility] today, will continue to monitor.
[2024-11-04 15:09] VITALS: BP 133/79
[2024-11-04 16:47] LABS: Glucose - Point of Care 143 mg/dl (70-99)
[2024-11-04] MEDS: NOVOLOG FLEXPEN-MODERATE RESISTANCE SC (16:53)
[2024-11-04] MEDS: LOVENOX 40 MG SC (17:11)
[2024-11-04 20:49] LABS: Glucose - Point of Care 136 mg/dl (70-99)
[2024-11-04] MEDS: LANTUS 0.44 UNITS SC (21:16)
[2024-11-04 23:33] VITALS: BP 162/88
[2024-11-05 06:59] LABS: % Basophils 0.6 % (0-2); % Eosinophils 2.5 % (0-6); % Lymphocytes 17.2 % (20.5-51.1); % Monocytes 9.5 % (1.7-9.3); % Neutrophils 69.2 % (42.2-75.2); Absolute Basophils 0.1 10^3/uL (0-0.2); Absolute Eosinophils 0.3 10^3/uL (0-0.7); Absolute Immature Granulocytes 0.1 10^3/uL (0-0.05); Absolute Lymphocytes 2.1 10^3/uL (1.2-3.4); Absolute Monocytes 1.1 10^3/uL (0.1-0.6); Absolute Neutrophils 8.3 10^3/uL (1.4-6.5); Hematocrit 40.2 % (39.0-52.0); Hemoglobin 13.5 g/dL (13.0-18.0); Mean Corp Hgb Conc. 33.6 g/dL (33.0-37.0); Mean Corpuscular Hgb 28.7 pg (27.0-31.0); Mean Corpuscular Volume 85.5 fL (80.0-94.0); Mean Platelet Volume 9.7 fL (7.4-10.4); Nucleated Red Blood Cells % 0 % (-); Platelet Count 447 10^3/uL (130-400)
[2024-11-05 07:17] LABS: Blood Urea Nitrogen 22 mg/dl (9-20); Calcium 9.8 mg/dl (8.4-10.2); Carbon Dioxide 25 mmol/L (22-30); Chloride 103 mmol/L (98-107); Estimated Creatinine Clearance 108 ml/min; Glucose 149 mg/dl (70-99); Potassium 4.6 mmol/L (3.5-5.1); Sodium 136 mmol/L (135-145); eGFR > 60.00
[2024-11-05 07:41] VITALS: BP 145/84
[2024-11-05 07:49] LABS: Glucose - Point of Care 140 mg/dl (70-99)
[2024-11-05] MEDS: NOVOLOG FLEXPEN-MODERATE RESISTANCE SC (08:45)
[2024-11-05] MEDS: LIPITOR 10 MG PO (08:47)
[2024-11-05] MEDS: NORVASC 10 MG PO (08:47)
[2024-11-05] MEDS: B COMPLEX w/VITAMIN C 1 CAPLET PO (08:47)
[2024-11-05] MEDS: NEURONTIN 300 MG PO (08:47)
[2024-11-05] MEDS: VITAMIN D3 (cholecalciferol) 50 MCG PO (08:47)
[2024-11-05] MEDS: NOVOLOG FLEXPEN 30 UNITS SC (08:48)
[2024-11-05] MEDS: MIRALAX 17 GRAMS PO (08:49)
--- NOTE | 2024-11-05 09:45 | W.PN.HOSP.TC ---
Today's Communication/Plan
-
dc
Assessment / Plan
Assessment / Plan
Physical Exam
-
General: Well Developed, Well Nourished, No Apparent Distress, Comfortable and Obese
HEENT: Normocephalic, Atraumatic, Moist Mucous Membranes, No Ptosis, PERRLA and Nose Appears Normal
Respiratory: Clear to Auscultation and Non Labored Respirations
Cardiac: Regular Rhythm and S1/S2
Breast: Deferred by me
GI: Soft, Nontender, Nondistended and Normal Bowel Sounds
Genito-urinary: No Costovertebral Tender
Musculoskeletal: No Clubbing, No Cyanosis and No Edema
Skin: Warm
Neuro: Awake, Alert, Oriented, AO x 3 and No Motor Deficits
Psych: Calm
IMPRESSION:
Patient is 59 years old with history of hypertension, hyperlipidemia, chronic pain and spinal stenosis, obesity who came to the ER with generalized fatigue, muscle cramp, blurry vision found to have new onset diabetes mellitus not in DKA. Hemoglobin
A1c came back elevated at 14.5. Started on Lantus/lispro.
Adjusting insulin based on current blood sugar read and ordered PT consult for generalized fatigue.
Assessment/plan
Newly diagnosed diabetes with severe hyperglycemia
Preserved mental status not meeting criteria for HHNK.
Noted with mild bilateral hydroxybutyrate elevation, and mucous disorder including conduction alkalosis and mild gap acidosis, although not quite meet criteria for DKA.
Hemoglobin A1c 14.5
s/p aggressive hydration with isotonic fluids.
Okay to advance diet.
Initiate basal bolus protocol with serial Accu-Cheks.
Initiated on insulin Lantus/AC NovoLog.
Insulin teaching was done.
TSH within normal limits
Insulin dose adjusted increasing Lantus 44 at bedtime/NovoLog 30 AC. Continue basal bolus protocol.
Diabetic neuropathy
Diffuse body ache
Bilateral lower extremity
Initiated on Neurontin
Continue Flexeril
Fever leukocytosis, resolved.
No sign of localized infection.
COVID/influenza negative
Chest x-ray done in admission showed no acute finding.
UA on admission showed no infection.
Elevated inflammatory markers: CRP/sed rate.
Blood cultures negative to date
Complained of right shoulder pain with x-ray showed no acute abnormalities. Pain improving with addition of Neurontin. Given trending down fever, WBC, no indication for additional imaging.
Has a chronic low back pain which patient reports no exacerbation at this point
Right upper extremity edema.
Right upper extremity and bilateral lower extremity Doppler negative for DVT
Mild rhabdomyolysis, nontraumatic.
Improved with hydration, resolved.
Essential hypertension.
EKG with normal sinus rhythm.
No prior history of CAD.
Echocardiogram with preserved biventricular function
Continue amlodipine
Albuminuria. May benefit from addition of SHAE or ARB's. Monitor BP trend.
Continue statin
Chronic back pain/spinal stenosis
Hold ibuprofen acutely.
PT/OT
History of alcohol use disorder
patient claims to be sober recently.
CODE STATUS: Full code
DVT prophylaxis: Lovenox
Diet: Diabetic diet
Total discharge time spent to see the patient, examine the patient, review data and lab results, discuss discharge plan with patient, nursing staff around 65 minutes
Anticipated Discharge: Today
Subjective/Interval History
-
Date of Service: November 05, 2024
No compalints
Objective Data
-
Labs:
Laboratory Results
11/05/24
06:36
WBC 12.0 H
Hgb 13.5
Hct 40.2
Plt Count 447 H
Sodium 136
Potassium 4.6
Chloride 103
Carbon Dioxide 25
BUN 22 H
Creatinine 0.9
Glucose 149 H
Calcium 9.8
Vital Signs:
Vital Signs
Temp Pulse Resp BP Pulse Ox
98.5 F 93 17 145/84 96
11/05/24 07:41 11/05/24 08:47 11/05/24 07:41 11/05/24 08:47 11/05/24 07:41
I&O
11/04/24 11/05/24 11/06/24
06:59 06:59 06:59
Intake Total 3440 / 3440 1570 / 1570
Output Total 4125 / 4125 4125 / 4125
Balance -685 / -685 -2555 / -2555
--- NOTE | 2024-11-05 15:27 | W.PN.UPDATE ---
Addendum entered and electronically signed by Judith Henderson MD 11/05/24 15:29:
Wrong dates
Original Note:
Update Note
Progress Note Update
Correction to discharge summary
Date of admission October 27, 2024
Date of discharge November 04, 2024
--- NOTE | 2024-11-05 15:28 | W.PN.UPDATE ---
Update Note
Progress Note Update
correction to discharge summary
Date of admission, October 27, 2024
Date of discharge: November 05, 2024
--- NOTE | 2024-11-07 09:31 | PTCARENOTE ---
11/07/2024 DIABETES EDUCATION
Returned call to Otilio. He is now at [facility] rehab, expects discharge in a few days after receiving PT/OT.
He is concerned that he is not getting long acting insulin or insulin at every meal, but they are checking glucose prior to meals. I explained that the MD's are rehab are now responsible for managing his care.
He does not have discharge paperwork in hand. I recommended he discuss the transition of care paperwork [facility] received and ask them to contact [facility] for the d/c paperwork. He also has a call in to his MD to coordinate care with
the rehab MD's. Confirmed that we have orders at his pharmacy for his insulin and testing supplies. He verbalized understanding.
== END 2024-11-05 10:12 | DRG 638 ==
LOC: 3 WEST ACU 16:50
PROVIDERS: General Practice; Physician Assistant; ADMITTING PHYSICIAN Internal Medicine; ATTENDING PHYSICIAN Internal Medicine; EMERGENCY PHYSICIAN Student in an Organized Health Care Education/Training Program; FAMILY PHYSICIAN Family Medicine
DX: E11.65 Type 2 diabetes mellitus with hyperglycemia (principal); E87.20 Acidosis, unspecified; E87.4 Mixed disorder of acid-base balance; M62.82 Rhabdomyolysis; E87.3 Alkalosis; Z87.891 Personal history of nicotine dependence; E86.0 Dehydration; E87.6 Hypokalemia; G89.29 Other chronic pain; I11.9 Hypertensive heart disease without heart failure; M48.00 Spinal stenosis, site unspecified; E78.00 Pure hypercholesterolemia, unspecified; M54.9 Dorsalgia, unspecified; Z68.39 Body mass index [BMI] 39.0-39.9, adult; E66.9 Obesity, unspecified; E11.40 Type 2 diabetes mellitus with diabetic neuropathy, unspecified; Z11.52 Encounter for screening for COVID-19; I70.0 Atherosclerosis of aorta; Z79.4 Long term (current) use of insulin; Z79.899 Other long term (current) drug therapy
CPT/HCPCS: 71046; 73030; 80048; 80053; 80061; 81003; 81015; 82010; 82248; 82550; 82805; 82947; 82962; 83036; 83735; 83880; 84443; 84484; 85025; 85027; 85652; 86140; 87040; 87502; 87811; 93005; 93306; 93970; 93971; 96365; 96375; 97110; 97116; 97163; 97167; 97530; 99285; Q9950